=== PATIENT | male | born 1975 | race Two or more races ===

== ENCOUNTER 2018-07-16 11:42 | Inpatient (IN) | payer MEDICARE, OTHER ==
[~2018-07-16] VITALS: Ht 175.3 cm; Wt 57.3 kg
[2018-07-16 14:23] VITALS: BP 135/94
[2018-07-16 16:00] VITALS: BP 120/81
[2018-07-16] MEDS ORDERED: Sodium Polystyrene Sulfonate 15gm Powder ORAL SCH (16:15)
--- NOTE | 2018-07-16 16:30 | History and Physical Report ---
DATE OF ADMISSION: 07/16/2018 CHIEF COMPLAINT: Shortness of breath. HISTORY OF PRESENT ILLNESS: This is a 43-year-old male who is a resident of [facility]. The patient was transferred to [facility] Emergency Room with shortness of breath. Following the stabilization, the patient was transferred to this hospital for further care. In the ER at [facility], the patient was noted to be having shortness of breath and was given breathing treatments and his condition improved. His potassium was 6.8. The patient was offered Kayexalate treatment but the patient refused! The patient has dialysis scheduled today. Of note is that the patient is also complaining of Nausea!! PAST MEDICAL HISTORY: 1. End-stage renal failure on dialysis. 2. COPD. 3. Noncompliance with diet and fluids. 4. History of recurrent ascites in the past. MEDICATIONS: Please refer to the list from the custodial. ALLERGIES: No known drug allergies. FAMILY HISTORY: Unremarkable. SOCIAL HISTORY: The patient is nonsmoker and nondrinker. There is no history of illicit drug abuse. REVIEW OF SYSTEMS: HEENT: Hearing and eyesight are normal. ENDOCRINE: No history of diabetes, thyroid or adrenal problems. RESPIRATORY: Significant for shortness of breath. CARDIAC: He denies chest pain or palpitations. GASTROINTESTINAL: No history of hematochezia, melena, hematemesis, diarrhea, or constipation. GENITOURINARY: He denies dysuria, frequency, urgency, or hematuria. NEUROLOGIC: No history of stroke, syncope, or Parkinson disease. PHYSICAL EXAMINATION: GENERAL: This is a middle-aged, chronically ill-appearing, [place]ian male who is in the moderate respiratory distress . VITAL SIGNS: Blood pressure 160/90, pulse 100 sinus tachycardia, respirations 20, O2 saturation 98% on 2 liters/minute nasal cannula. HEENT: Normocephalic and atraumatic. Pupils are equal, round, and reactive to light and accommodation consensually. NECK: Supple. Trachea midline. There was no lymphadenopathy or thyromegaly. LUNGS: Bilateral wheezes. HEART: Tachycardia. S1 and S2. No rubs, murmurs, or gallops. ABDOMEN: Soft and nontender. Bowel sounds were active. He has ascites and RUQ tenderness. EXTREMITIES: No clubbing, cyanosis, or edema. He has a left upper arm AV fistula. LABORATORY AND ANCILLARY DATA: Laboratory results from [facility] were reviewed. The most significant finding is potassium of 6.8. A repeat set of stat labs is pending. Chest x-ray shows the vascular congestion. ASSESSMENT: 1. CHF, [id number]. 2. End-stage renal failure on dialysis. 3. COPD. 4. Noncompliance with diet and fluids. 5. History of recurrent ascites in the past. PLAN: 1. BiPAP. 2. Hemodialysis later tonight. 3. Continue custodial medications. 4. Stat Abd US RE Ascites + RUQ tenderness. Bennie Anne M.D. DR: Katia JOB#: [id number] CC: ABDELRAHMAN
[2018-07-16] MEDS ORDERED: Norco 5mg/325mg tab ORAL PRN ×2 (17:00→18:00)
[2018-07-16] MEDS ORDERED: Sensipar 30mg Tab ORAL SCH (18:00)
[2018-07-16] MEDS: Sensipar 30mg Tab ORAL SCH (18:15)
[2018-07-16 20:00] VITALS: BP 144/91
[2018-07-16] MEDS: Minoxidil 2.5mg tab ORAL SCH (20:37)
[2018-07-16] MEDS ORDERED: Heparin 5000 units/ml inj SUBQ SCH ×2 (21:00)
[2018-07-16] MEDS ORDERED: Minoxidil 2.5mg tab ORAL SCH (21:00)
[2018-07-16 22:33] LABS: BASOPHILS % (AUTO) 1.7 % (0.0-2.0); EOSINOPHILS % (AUTO) 1.6 % (0.0-3.0); HEMATOCRIT 29.8 % (42.0-52.0); HEMOGLOBIN 9.9 G/DL (14.2-18.0); LYMPHOCYTES % (AUTO) 12.9 % (20.0-45.0); MEAN CORPUSCULAR VOLUME 88 FL (80-99); MONOCYTES % (AUTO) 8.4 % (1.0-10.0); NEUTROPHILS % (AUTO) 75.4 % (45.0-75.0); PLATELET COUNT 212 K/UL (150-450); RED CELL DISTRIBUTION WIDTH 15.3 % (11.6-14.8); WHITE BLOOD COUNT 6.8 K/UL (4.8-10.8)
[2018-07-16 22:42] LABS: ANION GAP 16 mmol/L (5-15); BLOOD UREA NITROGEN 118 mg/dL (7-18); CALCIUM 9.4 MG/DL (8.5-10.1); CARBON DIOXIDE 25 MMOL/L (21-32); CHLORIDE 95 MMOL/L (98-107); CREATININE 9.8 MG/DL (0.55-1.30); SODIUM 136 MMOL/L (136-145)
[2018-07-16 22:44] LABS: POTASSIUM 6.8 MMOL/L (3.5-5.1)
[2018-07-17] VITALS: BP 144/83
[2018-07-17 04:00] VITALS: BP 138/86
[2018-07-17 07:33] LABS: BASOPHILS % (AUTO) 1.3 % (0.0-2.0); EOSINOPHILS % (AUTO) 4.6 % (0.0-3.0); HEMATOCRIT 30.1 % (42.0-52.0); HEMOGLOBIN 9.7 G/DL (14.2-18.0); LYMPHOCYTES % (AUTO) 17.8 % (20.0-45.0); MEAN CORPUSCULAR VOLUME 88 FL (80-99); MONOCYTES % (AUTO) 7.7 % (1.0-10.0); NEUTROPHILS % (AUTO) 68.5 % (45.0-75.0); PLATELET COUNT 203 K/UL (150-450); RED BLOOD COUNT 3.41 M/UL (4.70-6.10); RED CELL DISTRIBUTION WIDTH 15.9 % (11.6-14.8); WHITE BLOOD COUNT 5.6 K/UL (4.8-10.8)
--- NOTE | 2018-07-17 07:46 | Nephrology Progress Note ---
Assessment/Plan Plan Uremia - BUN >>100 needs repeat HD. ? HD access problems. Vasc Surgery eval. Repeat long HD run. Hyperkalemia - same. CHF - check 2D Echo. Subjective Subjective Alert , itching! Objective Objective Last 24 Hour Vital Signs Date Time Temp Pulse Resp B/P (MAP) Pulse Ox O2 Delivery O2 Flow Rate FiO2 07/17/18 04:00 98.0 85 18 138/86 (103) 95 07/17/18 04:00 86 07/17/18 00:00 92 07/17/18 00:00 97.9 97 20 144/83 (103) 91 07/16/18 21:59 94 Nasal Cannula 3.0 07/16/18 21:58 Nasal Cannula 3.0 07/16/18 21:00 Nasal Cannula 3.0 07/16/18 20:37 144/91 07/16/18 20:00 97.8 90 18 144/91 (108) 97 07/16/18 20:00 89 07/16/18 16:00 98.2 103 20 120/81 (94) 94 07/16/18 16:00 102 07/16/18 14:23 97.5 107 22 135/94 (108) 94 07/16/18 14:22 Nasal Cannula 3.0 Intake and Output 07/16/18 07/17/18 19:00 07:00 Intake Total 240 ml 480 ml Balance 240 ml 480 ml Intake Oral 240 ml 480 ml Laboratory Tests 07/16/18 21:00: White Blood Count 6.8, Red Blood Count 3.40L, Hemoglobin 9.9L, Hematocrit 29.8L , Mean Corpuscular Volume 88, Mean Corpuscular Hemoglobin 29.0, Mean Corpuscular Hemoglobin Concent 33.1, Red Cell Distribution Width 15.3H, Platelet Count 212, Mean Platelet Volume 5.8L, Neutrophils (%) (Auto) 75.4H, Lymphocytes (%) (Auto) 12.9L, Monocytes (%) (Auto) 8.4, Eosinophils (%) (Auto) 1.6, Basophils (%) (Auto) 1.7, Sodium Level 136, Potassium Level 6.8*H, Chloride Level 95L, Carbon Dioxide Level 25, Anion Gap 16H, Blood Urea Nitrogen 118H, Creatinine 9.8H, Estimat Glomerular Filtration Rate 5.8, Glucose Level 112H, Calcium Level 9.4 07/17/18 06:50: White Blood Count 5.6, Red Blood Count 3.41L, Hemoglobin 9.7L, Hematocrit 30.1L , Mean Corpuscular Volume 88, Mean Corpuscular Hemoglobin 28.6, Mean Corpuscular Hemoglobin Concent 32.3, Red Cell Distribution Width 15.9H, Platelet Count 203, Mean Platelet Volume 6.2L, Neutrophils (%) (Auto) 68.5, Lymphocytes (%) (Auto) 17.8L, Monocytes (%) (Auto) 7.7, Eosinophils (%) (Auto) 4.6H, Basophils (%) (Auto) 1.3, Sodium Level [Pending], Potassium Level [Pending ], Chloride Level [Pending], Carbon Dioxide Level [Pending], Blood Urea Nitrogen [Pending], Creatinine [Pending], Estimat Glomerular Filtration Rate [ Pending], Glucose Level [Pending], Calcium Level [Pending] Height (Feet): 5 Height (Inches): 9.00 Weight (Pounds): 128 Objective Chronically ill. Cachectic! CV RR Lungs CTA. Abd ascites? E No CCE. Bennie Anne MD Jul 17, 2018 07:46
[2018-07-17 07:48] LABS: ANION GAP 16 mmol/L (5-15); BLOOD UREA NITROGEN 68 mg/dL (7-18); CALCIUM 9.1 MG/DL (8.5-10.1); CARBON DIOXIDE 23 MMOL/L (21-32); CHLORIDE 99 MMOL/L (98-107); CREATININE 7.1 MG/DL (0.55-1.30); POTASSIUM 5.5 MMOL/L (3.5-5.1); SODIUM 138 MMOL/L (136-145)
[2018-07-17] MEDS ORDERED: Heparin Sod 1000 units/ml 10ml IV PRN (07:52)
[2018-07-17 08:00] VITALS: BP 129/87
[2018-07-17] MEDS: Heparin 5000 units/ml inj SUBQ SCH ×2 (09:00→20:51)
[2018-07-17] MEDS: Minoxidil 2.5mg tab ORAL SCH ×2 (09:32→20:50)
[2018-07-17] MEDS: Sensipar 30mg Tab ORAL SCH ×2 (09:33→18:00)
[2018-07-17 12:00] VITALS: BP 132/95
--- NOTE | 2018-07-17 13:26 | Diagnostic Imaging Report ---
Indication: Abdominal distention, abnormal renal function tests Technique: Carrera-scale and duplex images of the upper abdomen were obtained. Doppler interrogation of the hepatic vessels Comparison: none Findings: Gallbladder demonstrates gallstones. Gallbladder wall is thickened, measuring 7 mm in thickness. Sonographic Aleman's sign is positive. There is pericholecystic fluid Common bile duct measures 7 mm in diameter. No intrahepatic biliary ductal dilatation. Liver demonstrates normal echogenicity, no focal abnormality. It is somewhat enlarged Portal vein and hepatic veins are patent. Abnormal portal venous waveform, suggestive of to-and-fro waveform, is noted. Pancreas is incompletely visualized due to overlying bowel gas, visualized portions are unremarkable. Spleen is borderline enlarged, measuring 13.6 cm. Splenic hilar varices are evident Left kidney measures 9.9 cm in length. Right kidney measures 7.6 cm length. Both kidneys demonstrate increased echogenicity, especially the right.. There is no hydronephrosis. Left kidney demonstrates multiple cysts. It also demonstrates one or more calcifications . Abdominal aorta is partially obscured by bowel gas, visualized portions are non-aneurysmal . There is a small amount of ascites. There is mild distention of the inferior vena cava and hepatic veins. Impression: Hepatic vein and inferior vena cava distention, consistent with central venous hypertension Pulsatile portal venous waveform. This could represent a [id number] waveform as seen in portal vein hypertension, but can also be seen in right heart failure Cholelithiasis. Positive sonographic Aleman's sign. This combination of findings raises concern for acute cholecystitis. In addition, gallbladder wall is thickened. This could also be another site indicating acute cholecystitis, but could also represent edema due to hemodynamic derangements given other findings suggesting portal hypertension and/or central venous hypertension. Correlate with clinical findings, consider nuclear medicine hepatic biliary scan for further evaluation if clinically indicated Hepatomegaly. Trace ascites Splenomegaly and slightly better varices, also suggestive of portal venous hypertension Atrophic markedly echogenic right kidney, normal size but is also slightly echogenic left kidney consistent with medical renal disease. Left renal cysts Possible nonobstructive left renal calculi
[2018-07-17] MEDS: Piperacillin/Tazobactam 2.25 GM in D5W 55 ML IVPB SCH ×2 (15:52→22:43)
[2018-07-17 16:00] VITALS: BP 115/87
--- NOTE | 2018-07-17 17:17 | Cardiology Report ---
APPROVED REPORT EXAM: Two-dimensional and M-mode echocardiogram with Doppler and color Doppler. INDICATION Congestive Heart Failure M-Mode DIMENSIONS IVSd1.1 (0.7-1.1cm)Left Atrium (MM)4.1 (1.6-4.0cm) LVDd3.7 (3.5-5.6cm)Aortic Root4.0 (2.0-3.7cm) PWd1.7 (0.7-1.1cm)Aortic Cusp Exc.1.9 (1.5-2.0cm) LVDs2.6 (2.5-4.0cm) PWs1.6 cm Normal left ventricular chamber size. Diastolic flattening of vs related to rv volume over load All other remaining segments seem to have normal wall motion. Left ventricular ejection fraction estimated to be 55 %. Mild left ventricular hypertrophy by 2-D. No evidence of pericardial effusion. Mild left atrial enlargement. Moderate right atrial enlargement. Mild right ventricular enlargement. Focal aortic valve sclerosis with adequate cusp excursion. Thickened mitral valve leaflets with normal excursion. Mitral annulus and aortic root calcification. Pulmonic valve not well visualized. Normal tricuspid valve structure. IVC dilated at 3.3 cm without physiologic collapse suggestive of RA pressure at least 20 mmHg. A color flow and spectral Doppler study was performed and revealed: Trace aortic regurgitation. Mild mitral regurgitation. Mitral diastolic velocities suggest reduced left ventricular relaxation c/w mild LV diastolic dysfunction. Moderate to severe tricuspid regurgitation. Tricuspid systolic velocities suggests peak right ventricular systolic pressure of 72 mmHg, consistent with severe pulmonary hypertension. Pulmonic regurgitation present.
--- NOTE | 2018-07-17 18:31 | Consultation ---
History of Present Illness General Date patient seen: Jul 17, 2018 Reason for Consultation: acute cholecystitis Present Illness HPI 43 year old male residential resident with multiple medical comorbidities including ESRD on HD admitted for medical care and management. Patient experiencing SOB recently. Intermittent abdominal discomfort. US noted cholelithiasis and thickened GB wall. Surgery called to evaluate. patient seen , chart reviewed, patient examined. currently no n/v/f/c. states he is hungry. no pain currently. no leukocytosis. pending other labs. hx of cholelithiasis in past. Allergies: Coded Allergies: NO KNOWN ALLERGIES (Verified Allergy, Unknown, 07/16/18) Patient History History Provided By: Patient, Medical Record, PMD Healthcare decision maker Resuscitation status Full Code Advanced Directive on File Past Medical/Surgical History Past Medical/Surgical History: (1) Cholelithiasis (2) Acute cholecystitis (3) Shortness of breath (4) CHF (congestive heart failure), NYHA class III (5) End stage kidney disease Review of Systems All Other Systems: negative except mentioned in HPI Physical Exam General Appearance: no apparent distress, alert Lines, tubes and drains: other HEENT: normocephalic, atraumatic, mucous membranes moist Neck: normal inspection Respiratory/Chest: normal breath sounds, no respiratory distress, no accessory muscle use Cardiovascular/Chest: normal rate Abdomen: normal bowel sounds, non tender, soft, no organomegaly, no mass Extremities: normal inspection Neurologic: alert, oriented x 3 Last 24 Hour Vital Signs Date Time Temp Pulse Resp B/P (MAP) Pulse Ox O2 Delivery O2 Flow Rate FiO2 07/17/18 16:00 81 07/17/18 16:00 98.0 84 20 115/87 (96) 95 07/17/18 12:00 97.9 90 18 132/95 (107) 96 07/17/18 12:00 79 07/17/18 09:32 129/87 07/17/18 09:12 82 18 Nasal Cannula 3.0 32 07/17/18 09:12 Room Air 21 07/17/18 09:12 100 Nasal Cannula 3.0 32 07/17/18 09:00 82 129/87 07/17/18 09:00 Nasal Cannula 3.0 07/17/18 08:00 97.7 89 18 129/87 (101) 94 07/17/18 08:00 87 07/17/18 04:00 98.0 85 18 138/86 (103) 95 07/17/18 04:00 86 07/17/18 00:00 92 07/17/18 00:00 97.9 97 20 144/83 (103) 91 07/16/18 21:59 94 Nasal Cannula 3.0 07/16/18 21:58 Nasal Cannula 3.0 07/16/18 21:00 Nasal Cannula 3.0 07/16/18 20:37 144/91 07/16/18 20:00 97.8 90 18 144/91 (108) 97 07/16/18 20:00 89 Intake and Output 07/16/18 07/17/18 19:00 07:00 Intake Total 240 ml 480 ml Balance 240 ml 480 ml Intake Oral 240 ml 480 ml Laboratory Tests Test 07/16/18 21:00 07/17/18 06:50 White Blood Count 6.8 K/UL (4.8-10.8) 5.6 K/UL (4.8-10.8) Red Blood Count 3.40 M/UL (4.70-6.10) L 3.41 M/UL (4.70-6.10) L Hemoglobin 9.9 G/DL (14.2-18.0) L 9.7 G/DL (14.2-18.0) L Hematocrit 29.8 % (42.0-52.0) L 30.1 % (42.0-52.0) L Mean Corpuscular Volume 88 FL (80-99) 88 FL (80-99) Mean Corpuscular Hemoglobin 29.0 PG (27.0-31.0) 28.6 PG (27.0-31.0) Mean Corpuscular Hemoglobin Concent 33.1 G/DL (32.0-36.0) 32.3 G/DL (32.0-36.0) Red Cell Distribution Width 15.3 % (11.6-14.8) H 15.9 % (11.6-14.8) H Platelet Count 212 K/UL (150-450) 203 K/UL (150-450) Mean Platelet Volume 5.8 FL (6.5-10.1) L 6.2 FL (6.5-10.1) L Neutrophils (%) (Auto) 75.4 % (45.0-75.0) H 68.5 % (45.0-75.0) Lymphocytes (%) (Auto) 12.9 % (20.0-45.0) L 17.8 % (20.0-45.0) L Monocytes (%) (Auto) 8.4 % (1.0-10.0) 7.7 % (1.0-10.0) Eosinophils (%) (Auto) 1.6 % (0.0-3.0) 4.6 % (0.0-3.0) H Basophils (%) (Auto) 1.7 % (0.0-2.0) 1.3 % (0.0-2.0) Sodium Level 136 MMOL/L (136-145) 138 MMOL/L (136-145) Potassium Level 6.8 MMOL/L (3.5-5.1) *H 5.5 MMOL/L (3.5-5.1) H Chloride Level 95 MMOL/L (98-107) L 99 MMOL/L (98-107) Carbon Dioxide Level 25 MMOL/L (21-32) 23 MMOL/L (21-32) Anion Gap 16 mmol/L (5-15) H 16 mmol/L (5-15) H Blood Urea Nitrogen 118 mg/dL (7-18) H 68 mg/dL (7-18) H Creatinine 9.8 MG/DL (0.55-1.30) H 7.1 MG/DL (0.55-1.30) H Estimat Glomerular Filtration Rate 5.8 mL/min (>60) 8.4 mL/min (>60) Glucose Level 112 MG/DL (74-106) H 105 MG/DL (74-106) Calcium Level 9.4 MG/DL (8.5-10.1) 9.1 MG/DL (8.5-10.1) Height (Feet): 5 Height (Inches): 9.00 Weight (Pounds): 128 Medications Current Medications Medications (Trade) Dose Ordered Sig/Joe Route PRN Reason Start Time Stop Time Status Last Admin Dose Admin Acetaminophen (Tylenol) 650 mg Q6H PRN ORAL Mild Pain/Temp > 100.5 07/16/18 16:45 08/15/18 16:44 07/17/18 18:11 Acetaminophen/ Hydrocodone Bitart ([place] 5/325) 1 tab Q6H PRN ORAL PAIN 4-10 07/16/18 18:00 07/23/18 17:59 Amlodipine Besylate (Norvasc) 5 mg DAILY ORAL 07/17/18 09:00 08/16/18 08:59 Cinacalcet (Sensipar) 30 mg BID ORAL 07/16/18 18:00 08/15/18 17:59 07/17/18 09:33 Heparin Sodium (Porcine) (Heparin 5000 units/ml) 5,000 units EVERY 12 HOURS SUBQ 07/17/18 09:00 08/16/18 08:59 Heparin Sodium (Porcine) (Heparin Sod 1000 units/ml 10ml) 2,000 unit ONCE PRN IV DIALYSIS 07/17/18 07:52 07/18/18 23:59 07/17/18 17:11 Minoxidil (Loniten) 2.5 mg Q12HR ORAL 07/16/18 21:00 08/15/18 20:59 07/17/18 09:32 Ondansetron HCl (Zofran) 4 mg Q6H PRN IVP Nausea & Vomiting 07/17/18 14:45 08/16/18 14:44 07/17/18 14:54 Piperacillin Sod/ Tazobactam Sod 2.25 gm/Dextrose 55 ml @ 110 mls/hr Q8HR IVPB 07/17/18 16:00 07/22/18 15:59 07/17/18 15:52 Sevelamer Carbonate (Renvela) 800 mg THREE TIMES A DAY ORAL 07/16/18 18:00 08/15/18 17:59 07/17/18 12:52 Sodium Chloride 1,000 ml @ 500 mls/hr Q2H PRN IVLG sbp<90 during hd 07/17/18 08:00 08/16/18 07:59 Assessment/Plan Problem List: (1) Acute cholecystitis Assessment & Plan: Acute cholecystitis vs biliary colic vs incidental radiographic findings currently no symptoms of cholecystitis. no pain. no n/v/f/c. exam benign. abd soft nt/nd. no leukocytosis pending lft's -will treat conservatively -IV abx -okay for clear liquid diet -AM labs thank you. will follow clinically. ICD Codes: K81.0 - Acute cholecystitis SNOMED: 99934917 Status: stable Mandeep Barksdale Jul 17, 2018 18:31
[2018-07-17 20:00] VITALS: BP 133/94
[2018-07-18] VITALS: BP 128/88
[2018-07-18 04:00] VITALS: BP 131/84
[2018-07-18] MEDS: Piperacillin/Tazobactam 2.25 GM in D5W 55 ML IVPB SCH (05:42)
[2018-07-18 07:11] LABS: BASOPHILS % (AUTO) 2.7 % (0.0-2.0); EOSINOPHILS % (AUTO) 8.7 % (0.0-3.0); HEMATOCRIT 32.3 % (42.0-52.0); HEMOGLOBIN 10.5 G/DL (14.2-18.0); LYMPHOCYTES % (AUTO) 18.6 % (20.0-45.0); MEAN CORPUSCULAR VOLUME 88 FL (80-99); MONOCYTES % (AUTO) 10.7 % (1.0-10.0); NEUTROPHILS % (AUTO) 59.3 % (45.0-75.0); PLATELET COUNT 198 K/UL (150-450); RED BLOOD COUNT 3.65 M/UL (4.70-6.10); RED CELL DISTRIBUTION WIDTH 15.1 % (11.6-14.8); WHITE BLOOD COUNT 5.3 K/UL (4.8-10.8)
[2018-07-18 07:26] LABS: ALANINE AMINOTRANSFERASE 22 U/L (12-78); ALBUMIN 3.6 G/DL (3.4-5.0); ALBUMIN/GLOBULIN RATIO 0.7 (1.0-2.7); ALKALINE PHOSPHATASE 273 U/L (46-116); ANION GAP 14 mmol/L (5-15); ASPARTATE AMINO TRANSFERASE 20 U/L (15-37); BILIRUBIN,TOTAL 1.2 MG/DL (0.2-1.0); BLOOD UREA NITROGEN 55 mg/dL (7-18); CALCIUM 9.4 MG/DL (8.5-10.1); CARBON DIOXIDE 23 MMOL/L (21-32); CHLORIDE 98 MMOL/L (98-107); PHOSPHORUS 6.2 MG/DL (2.5-4.9); POTASSIUM 5.6 MMOL/L (3.5-5.1); SODIUM 135 MMOL/L (136-145)
[2018-07-18 07:29] LABS: BILIRUBIN,DIRECT 0.6 MG/DL (0.0-0.3)
[2018-07-18 07:55] VITALS: BP 118/83
[2018-07-18] MEDS: Sensipar 30mg Tab ORAL SCH ×2 (08:54→17:31)
[2018-07-18] MEDS: Heparin 5000 units/ml inj SUBQ SCH ×2 (08:56→20:57)
[2018-07-18] MEDS: Minoxidil 2.5mg tab ORAL SCH ×2 (08:56→20:57)
--- NOTE | 2018-07-18 10:05 | General Surgery Progress Note ---
General Surgery-Progress Note Subjective Symptoms: improved, pain absent, tolerating diet, passing flatus Additional Comments no acute events. comfortable. no n/v/f/c. no pain. tolerated clears Objective Last 24 Hour Vital Signs Date Time Temp Pulse Resp B/P (MAP) Pulse Ox O2 Delivery O2 Flow Rate FiO2 07/18/18 09:00 Nasal Cannula 3.0 07/18/18 08:56 118/83 07/18/18 08:54 79 118/83 07/18/18 08:00 79 07/18/18 07:55 98.2 79 20 118/83 (95) 95 07/18/18 07:30 74 17 Nasal Cannula 3.0 32 07/18/18 07:30 Nasal Cannula 3.0 32 07/18/18 07:30 98 Nasal Cannula 3.0 32 07/18/18 04:00 78 07/18/18 04:00 98.2 78 17 131/84 (100) 76 07/18/18 00:00 83 07/18/18 00:00 98.1 96 18 128/88 (101) 95 07/17/18 22:49 Nasal Cannula 3.0 07/17/18 22:48 98 Nasal Cannula 3.0 32 07/17/18 22:47 86 20 Nasal Cannula 3.0 32 07/17/18 21:00 Nasal Cannula 3.0 07/17/18 20:50 133/94 07/17/18 20:00 97.8 98 16 133/94 (107) 95 07/17/18 20:00 87 07/17/18 16:00 81 07/17/18 16:00 98.0 84 20 115/87 (96) 95 07/17/18 12:00 97.9 90 18 132/95 (107) 96 07/17/18 12:00 79 I&O Intake and Output 07/17/18 07/18/18 19:00 07:00 Intake Total 120 ml 415 ml Balance 120 ml 415 ml Intake Oral 120 ml 360 ml IV Total 55 ml Drains: none Cardiovascular: RSR Respiratory: clear Abdomen: soft, flat, non-tender, present bowel sounds Extremities: no cyanosis, other Laboratory Tests Test 07/18/18 05:05 White Blood Count 5.3 K/UL (4.8-10.8) Red Blood Count 3.65 M/UL (4.70-6.10) L Hemoglobin 10.5 G/DL (14.2-18.0) L Hematocrit 32.3 % (42.0-52.0) L Mean Corpuscular Volume 88 FL (80-99) Mean Corpuscular Hemoglobin 28.9 PG (27.0-31.0) Mean Corpuscular Hemoglobin Concent 32.7 G/DL (32.0-36.0) Red Cell Distribution Width 15.1 % (11.6-14.8) H Platelet Count 198 K/UL (150-450) Mean Platelet Volume 6.6 FL (6.5-10.1) Neutrophils (%) (Auto) 59.3 % (45.0-75.0) Lymphocytes (%) (Auto) 18.6 % (20.0-45.0) L Monocytes (%) (Auto) 10.7 % (1.0-10.0) H Eosinophils (%) (Auto) 8.7 % (0.0-3.0) H Basophils (%) (Auto) 2.7 % (0.0-2.0) H Sodium Level 135 MMOL/L (136-145) L Potassium Level 5.6 MMOL/L (3.5-5.1) H Chloride Level 98 MMOL/L (98-107) Carbon Dioxide Level 23 MMOL/L (21-32) Anion Gap 14 mmol/L (5-15) Blood Urea Nitrogen 55 mg/dL (7-18) H Creatinine 6.0 MG/DL (0.55-1.30) H Estimat Glomerular Filtration Rate 10.2 mL/min (>60) Glucose Level 78 MG/DL (74-106) Calcium Level 9.4 MG/DL (8.5-10.1) Phosphorus Level 6.2 MG/DL (2.5-4.9) H Total Bilirubin 1.2 MG/DL (0.2-1.0) H Direct Bilirubin 0.6 MG/DL (0.0-0.3) H Aspartate Amino Transf (AST/SGOT) 20 U/L (15-37) Alanine Aminotransferase (ALT/SGPT) 22 U/L (12-78) Alkaline Phosphatase 273 U/L (46-116) H Total Protein 8.6 G/DL (6.4-8.2) H Albumin 3.6 G/DL (3.4-5.0) Globulin 5.0 g/dL Albumin/Globulin Ratio 0.7 (1.0-2.7) L Plan Problems: (1) Acute cholecystitis Assessment & Plan: Acute cholecystitis vs biliary colic vs incidental radiographic findings currently no symptoms of cholecystitis. no pain. no n/v/f/c. exam benign. abd soft nt/nd. no leukocytosis lft's okay -will treat conservatively -IV abx -advance diet as tolerated thank you. will follow clinically. Mandeep Barksdale Jul 18, 2018 10:05
--- NOTE | 2018-07-18 10:15 | Nephrology Progress Note ---
Assessment/Plan Plan Uremia - BUN >>100 needs repeat HD. ? HD access problems. Vasc Surgery eval. Repeat long HD run. Hyperkalemia - same. CHF - check 2D Echo. Abd US interpreted as "Acute Cholecystitis". DW Dr. Martin. Clinically no evidence of acute cholecystitis. To upgrade diet. DC Abx. Frequent Hd due to uremia! Subjective Subjective Alert , itching! No N/V/Abd pain Objective Objective Last 24 Hour Vital Signs Date Time Temp Pulse Resp B/P (MAP) Pulse Ox O2 Delivery O2 Flow Rate FiO2 07/18/18 09:00 Nasal Cannula 3.0 07/18/18 08:56 118/83 07/18/18 08:54 79 118/83 07/18/18 08:00 79 07/18/18 07:55 98.2 79 20 118/83 (95) 95 07/18/18 07:30 74 17 Nasal Cannula 3.0 32 07/18/18 07:30 Nasal Cannula 3.0 32 07/18/18 07:30 98 Nasal Cannula 3.0 32 07/18/18 04:00 78 07/18/18 04:00 98.2 78 17 131/84 (100) 76 07/18/18 00:00 83 07/18/18 00:00 98.1 96 18 128/88 (101) 95 07/17/18 22:49 Nasal Cannula 3.0 07/17/18 22:48 98 Nasal Cannula 3.0 32 07/17/18 22:47 86 20 Nasal Cannula 3.0 32 07/17/18 21:00 Nasal Cannula 3.0 07/17/18 20:50 133/94 07/17/18 20:00 97.8 98 16 133/94 (107) 95 07/17/18 20:00 87 07/17/18 16:00 81 07/17/18 16:00 98.0 84 20 115/87 (96) 95 07/17/18 12:00 97.9 90 18 132/95 (107) 96 07/17/18 12:00 79 Intake and Output 07/17/18 07/18/18 19:00 07:00 Intake Total 120 ml 415 ml Balance 120 ml 415 ml Intake Oral 120 ml 360 ml IV Total 55 ml Laboratory Tests 07/18/18 05:05: White Blood Count 5.3, Red Blood Count 3.65L, Hemoglobin 10.5L, Hematocrit 32.3L , Mean Corpuscular Volume 88, Mean Corpuscular Hemoglobin 28.9, Mean Corpuscular Hemoglobin Concent 32.7, Red Cell Distribution Width 15.1H, Platelet Count 198, Mean Platelet Volume 6.6, Neutrophils (%) (Auto) 59.3, Lymphocytes (%) (Auto) 18.6L, Monocytes (%) (Auto) 10.7H, Eosinophils (%) (Auto ) 8.7H, Basophils (%) (Auto) 2.7H, Sodium Level 135L, Potassium Level 5.6H, Chloride Level 98, Carbon Dioxide Level 23, Anion Gap 14, Blood Urea Nitrogen 55H, Creatinine 6.0H, Estimat Glomerular Filtration Rate 10.2, Glucose Level 78 , Calcium Level 9.4, Phosphorus Level 6.2H, Total Bilirubin 1.2H, Direct Bilirubin 0.6H, Aspartate Amino Transf (AST/SGOT) 20, Alanine Aminotransferase ( ALT/SGPT) 22, Alkaline Phosphatase 273H, Total Protein 8.6H, Albumin 3.6, Globulin 5.0, Albumin/Globulin Ratio 0.7L Height (Feet): 5 Height (Inches): 9.00 Weight (Pounds): 126 Objective Chronically ill. Cachectic! CV RR Lungs CTA. Abd ascites? E No CCE. Bennie Anne MD Jul 18, 2018 10:15
[2018-07-18 12:00] VITALS: BP 135/91
--- NOTE | 2018-07-18 13:30 | Consultation ---
DATE OF CONSULTATION: 07/18/2018 INFECTIOUS DISEASE CONSULTATION CONSULTING PHYSICIAN: Otis Montes M.D. This consult is for coverage of Grace Lancaster M.D. PRIMARY ATTENDING PHYSICIAN: Bennie Anne M.D. REASON FOR CONSULT: Cholecystitis. HISTORY OF PRESENT ILLNESS: This is a 43-year-old [place] male admitted on July 16 from ER of the [facility]. He was admitted to the hospital because of shortness of breath. An abdominal ultrasound showed possibility of cholecystitis, but the patient has no symptoms. PAST MEDICAL HISTORY: Significant for end-stage renal disease, on hemodialysis, noncompliance with diet and fluids, anemia, COPD, and history of colitis. SOCIAL HISTORY: He lives in nursing facility. Smoker of less than 5 cigarettes a day. Denies alcohol and drug abuse. Single. ALLERGIES: No known drug allergies. MEDICATIONS: Heparin, sodium chloride, got Zosyn yesterday that was discontinued today, Zofran, amlodipine, heparin, minoxidil, Sensipar, [place], Renvela, Tylenol. REVIEW OF SYSTEMS: The patient has no fever. No chills. No shortness of breath. No coughing. No chest pain. No abdominal pain. No nausea and vomiting. Making note a little bit of urine. PHYSICAL EXAMINATION: VITAL SIGNS: Temperature 98.2, pulse 79, blood pressure 118/83. GENERAL APPEARANCE: Seems to be thin and cachectic. HEAD AND NECK: No oral lesion. HEART: S1, S2. Regular. LUNGS: Clear. The patient getting oxygen by nasal cannula. ABDOMEN: Soft, flat, and nontender. EXTREMITIES: He has no edema. He has AV graft in the left upper extremity. LABORATORY AND DIAGNOSTIC DATA: WBC 5.3, hemoglobin 10.5, hematocrit 32.3, platelets 198,000. Sodium 135, potassium 5.6, chloride 98, bicarbonate 23, BUN 55, creatinine 6, glucose 78. Abdominal ultrasound showed cholelithiasis with positive Aleman sign, hepatomegaly, trace ascites, and splenomegaly that is better, portal hypertension, atrophic kidneys mostly in the right side. Echocardiogram showed ejection fraction of 55%, pulmonary hypertension. IMPRESSION: 1. Cholelithiasis, likely without acute cholecystitis. The patient is asymptomatic. 2. Portal hypertension. 3. End-stage renal disease. 4. Anemia. 5. Noncompliance with fluids. 6. Hepatomegaly. RECOMMENDATION: Observe off antibiotic. At the end of my exam, I thank Dr. Anne for involving me in the care of this patient. Otis Montes M.D. DR: Serene JOB#: [id number] CC:
[2018-07-18 16:00] VITALS: BP 138/97
[2018-07-18 20:00] VITALS: BP 141/97
[2018-07-19] VITALS: BP 159/106
[2018-07-19 04:00] VITALS: BP 139/97
[2018-07-19 06:12] LABS: BASOPHILS % (AUTO) 1.8 % (0.0-2.0); EOSINOPHILS % (AUTO) 9.6 % (0.0-3.0); HEMOGLOBIN 10.6 G/DL (14.2-18.0); MEAN CORPUSCULAR VOLUME 87 FL (80-99); MONOCYTES % (AUTO) 9.4 % (1.0-10.0); NEUTROPHILS % (AUTO) 65.2 % (45.0-75.0); PLATELET COUNT 175 K/UL (150-450); RED BLOOD COUNT 3.66 M/UL (4.70-6.10); RED CELL DISTRIBUTION WIDTH 14.9 % (11.6-14.8); WHITE BLOOD COUNT 5.7 K/UL (4.8-10.8)
[2018-07-19 06:31] LABS: ALANINE AMINOTRANSFERASE 18 U/L (12-78); ALBUMIN 3.5 G/DL (3.4-5.0); ALBUMIN/GLOBULIN RATIO 0.7 (1.0-2.7); ALKALINE PHOSPHATASE 239 U/L (46-116); ANION GAP 15 mmol/L (5-15); ASPARTATE AMINO TRANSFERASE 19 U/L (15-37); BILIRUBIN,TOTAL 0.8 MG/DL (0.2-1.0); BLOOD UREA NITROGEN 77 mg/dL (7-18); CALCIUM 8.3 MG/DL (8.5-10.1); CARBON DIOXIDE 23 MMOL/L (21-32); CHLORIDE 99 MMOL/L (98-107); CREATININE 8.3 MG/DL (0.55-1.30); POTASSIUM 5.1 MMOL/L (3.5-5.1); SODIUM 137 MMOL/L (136-145)
[2018-07-19 08:00] VITALS: BP 154/98
--- NOTE | 2018-07-19 08:29 | Nephrology Progress Note ---
Assessment/Plan Plan Uremia - BUN >>100 needs repeat HD. ? HD access problems. Vasc Surgery eval. Repeat long HD run. Hyperkalemia - resolved. CHF - check 2D Echo. Abd US interpreted as "Acute Cholecystitis". DW Dr. Martin. Clinically no evidence of acute cholecystitis. To upgrade diet. DC Abx. Frequent Hd due to uremia! 2 D Echo Severe Pul. HTN!!! To consider Pul/Cardiol consults. May Explain recurrent Ascites. Subjective Subjective c/o heartburn. On HD now. Objective Objective Last 24 Hour Vital Signs Date Time Temp Pulse Resp B/P (MAP) Pulse Ox O2 Delivery O2 Flow Rate FiO2 07/19/18 04:00 87 07/19/18 04:00 98.0 86 19 139/97 (111) 96 07/19/18 00:00 95 07/19/18 00:00 98.5 62 18 159/106 (123) 95 07/18/18 21:00 Nasal Cannula 3.0 07/18/18 20:57 141/97 07/18/18 20:51 Nasal Cannula 3.0 32 07/18/18 20:51 99 Nasal Cannula 3.0 32 07/18/18 20:51 95 18 Nasal Cannula 3.0 32 07/18/18 20:00 97.2 81 18 141/97 (112) 95 07/18/18 20:00 79 07/18/18 16:00 81 07/18/18 16:00 97.6 84 18 138/97 (111) 97 07/18/18 12:00 82 07/18/18 12:00 98.0 82 18 135/91 (106) 95 07/18/18 09:00 Nasal Cannula 3.0 07/18/18 08:56 118/83 07/18/18 08:54 79 118/83 Intake and Output 07/18/18 07/19/18 19:00 07:00 Intake Total 1130 ml 400 ml Balance 1130 ml 400 ml Intake Oral 1130 ml 400 ml # Voids 2 2 Laboratory Tests 07/19/18 05:50: White Blood Count 5.7, Red Blood Count 3.66L, Hemoglobin 10.6L, Hematocrit 32.0L , Mean Corpuscular Volume 87, Mean Corpuscular Hemoglobin 28.8, Mean Corpuscular Hemoglobin Concent 33.0, Red Cell Distribution Width 14.9H, Platelet Count 175, Mean Platelet Volume 6.0L, Neutrophils (%) (Auto) 65.2, Lymphocytes (%) (Auto) 14.0L, Monocytes (%) (Auto) 9.4, Eosinophils (%) (Auto) 9.6H, Basophils (%) (Auto) 1.8, Sodium Level 137, Potassium Level 5.1, Chloride Level 99, Carbon Dioxide Level 23, Anion Gap 15, Blood Urea Nitrogen 77H, Creatinine 8.3H, Estimat Glomerular Filtration Rate 7.0, Glucose Level 93, Calcium Level 8.3L, Total Bilirubin 0.8, Aspartate Amino Transf (AST/SGOT) 19, Alanine Aminotransferase (ALT/SGPT) 18, Alkaline Phosphatase 239H, Total Protein 8.4H, Albumin 3.5, Globulin 4.9, Albumin/Globulin Ratio 0.7L Height (Feet): 5 Height (Inches): 9.00 Weight (Pounds): 125 Objective Chronically ill. Cachectic! CV RR Lungs CTA. Abd ascites? E No CCE. eBnnie Anne MD Jul 19, 2018 08:29
--- NOTE | 2018-07-19 10:22 | Infectious Diseases Prog Note ---
Assessment/Plan Assessment/Plan antibiotics : none A 1. unlikely cholecystitis 2. renal failure 3. cholelithiasis 4. COPD P 1. continue off antibiotics Subjective Constitutional: Denies: fever, chills Respiratory: Reports: shortness of breath - mild Gastrointestinal/Abdominal: Reports: diarrhea - last night; Denies: nausea, vomiting Musculoskeletal: Denies: pain Allergies: Coded Allergies: NO KNOWN ALLERGIES (Verified Allergy, Unknown, 07/16/18) Objective Vital Signs Last 24 Hour Vital Signs Date Time Temp Pulse Resp B/P (MAP) Pulse Ox O2 Delivery O2 Flow Rate FiO2 07/19/18 08:00 98.0 81 21 154/98 (116) 96 07/19/18 04:00 87 07/19/18 04:00 98.0 86 19 139/97 (111) 96 07/19/18 00:00 95 07/19/18 00:00 98.5 62 18 159/106 (123) 95 07/18/18 21:00 Nasal Cannula 3.0 07/18/18 20:57 141/97 07/18/18 20:51 Nasal Cannula 3.0 32 07/18/18 20:51 99 Nasal Cannula 3.0 32 07/18/18 20:51 95 18 Nasal Cannula 3.0 32 07/18/18 20:00 97.2 81 18 141/97 (112) 95 07/18/18 20:00 79 07/18/18 16:00 81 07/18/18 16:00 97.6 84 18 138/97 (111) 97 07/18/18 12:00 82 07/18/18 12:00 98.0 82 18 135/91 (106) 95 Height (Feet): 5 Height (Inches): 9.00 Weight (Pounds): 125 Respiratory/Chest: lungs clear Cardiovascular: normal rate, regular rhythm, no gallop/murmur Abdomen: soft, non tender Extremities: no edema Microbiology Date/Time Source Procedure Growth Status 07/16/18 15:25 Nose MRSA Culture - Final Staphylococcus Aureus - Mrsa Complete 07/16/18 15:25 Rectum - Final NO CARBAPENEM-RESISTANT ENTEROBACTERI... Complete 07/16/18 15:25 Rectum VRE Culture - Final NO VANCOMYCIN RESISTANT ENTEROCOCCUS ... Complete Laboratory Tests Test 07/19/18 05:50 White Blood Count 5.7 K/UL (4.8-10.8) Red Blood Count 3.66 M/UL (4.70-6.10) L Hemoglobin 10.6 G/DL (14.2-18.0) L Hematocrit 32.0 % (42.0-52.0) L Mean Corpuscular Volume 87 FL (80-99) Mean Corpuscular Hemoglobin 28.8 PG (27.0-31.0) Mean Corpuscular Hemoglobin Concent 33.0 G/DL (32.0-36.0) Red Cell Distribution Width 14.9 % (11.6-14.8) H Platelet Count 175 K/UL (150-450) Mean Platelet Volume 6.0 FL (6.5-10.1) L Neutrophils (%) (Auto) 65.2 % (45.0-75.0) Lymphocytes (%) (Auto) 14.0 % (20.0-45.0) L Monocytes (%) (Auto) 9.4 % (1.0-10.0) Eosinophils (%) (Auto) 9.6 % (0.0-3.0) H Basophils (%) (Auto) 1.8 % (0.0-2.0) Sodium Level 137 MMOL/L (136-145) Potassium Level 5.1 MMOL/L (3.5-5.1) Chloride Level 99 MMOL/L (98-107) Carbon Dioxide Level 23 MMOL/L (21-32) Anion Gap 15 mmol/L (5-15) Blood Urea Nitrogen 77 mg/dL (7-18) H Creatinine 8.3 MG/DL (0.55-1.30) H Estimat Glomerular Filtration Rate 7.0 mL/min (>60) Glucose Level 93 MG/DL (74-106) Calcium Level 8.3 MG/DL (8.5-10.1) L Total Bilirubin 0.8 MG/DL (0.2-1.0) Aspartate Amino Transf (AST/SGOT) 19 U/L (15-37) Alanine Aminotransferase (ALT/SGPT) 18 U/L (12-78) Alkaline Phosphatase 239 U/L (46-116) H Total Protein 8.4 G/DL (6.4-8.2) H Albumin 3.5 G/DL (3.4-5.0) Globulin 4.9 g/dL Albumin/Globulin Ratio 0.7 (1.0-2.7) L Current Medications Medications (Trade) Dose Ordered Sig/Joe Route PRN Reason Start Time Stop Time Status Last Admin Dose Admin Acetaminophen (Tylenol) 650 mg Q6H PRN ORAL Mild Pain/Temp > 100.5 07/16/18 16:45 08/15/18 16:44 07/17/18 18:11 Acetaminophen/ Hydrocodone Bitart (Fyffe 5/325) 1 tab Q6H PRN ORAL PAIN 4-10 07/16/18 18:00 07/23/18 17:59 Amlodipine Besylate (Norvasc) 5 mg DAILY ORAL 07/17/18 09:00 08/16/18 08:59 07/18/18 08:54 Cinacalcet (Sensipar) 30 mg BID ORAL 07/16/18 18:00 08/15/18 17:59 07/18/18 17:31 Heparin Sodium (Porcine) (Heparin 5000 units/ml) 5,000 units EVERY 12 HOURS SUBQ 07/17/18 09:00 08/16/18 08:59 Heparin Sodium (Porcine) (Heparin Sod 1000 units/ml 10ml) 500 unit ONCE IV 07/19/18 10:30 07/19/18 23:59 Minoxidil (Loniten) 2.5 mg Q12HR ORAL 07/16/18 21:00 08/15/18 20:59 07/18/18 20:57 Ondansetron HCl (Zofran) 4 mg Q6H PRN IVP Nausea & Vomiting 07/17/18 14:45 08/16/18 14:44 07/17/18 14:54 Sevelamer Carbonate (Renvela) 800 mg THREE TIMES A DAY ORAL 07/16/18 18:00 08/15/18 17:59 07/18/18 17:31 Sodium Chloride 1,000 ml @ 500 mls/hr Q2H PRN IVLG sbp<90 during hd 07/19/18 10:16 07/19/18 23:59 Grace Lancaster MD Jul 19, 2018 10:22
[2018-07-19] MEDS ORDERED: Heparin Sod 1000 units/ml 10ml IV SCH (10:30)
--- NOTE | 2018-07-19 11:26 | General Surgery Progress Note ---
General Surgery-Progress Note Subjective Symptoms: improved, pain absent, tolerating diet, passing flatus, BM Objective Last 24 Hour Vital Signs Date Time Temp Pulse Resp B/P (MAP) Pulse Ox O2 Delivery O2 Flow Rate FiO2 07/19/18 08:00 98.0 81 21 154/98 (116) 96 07/19/18 04:00 87 07/19/18 04:00 98.0 86 19 139/97 (111) 96 07/19/18 00:00 95 07/19/18 00:00 98.5 62 18 159/106 (123) 95 07/18/18 21:00 Nasal Cannula 3.0 07/18/18 20:57 141/97 07/18/18 20:51 Nasal Cannula 3.0 32 07/18/18 20:51 99 Nasal Cannula 3.0 32 07/18/18 20:51 95 18 Nasal Cannula 3.0 32 07/18/18 20:00 97.2 81 18 141/97 (112) 95 07/18/18 20:00 79 07/18/18 16:00 81 07/18/18 16:00 97.6 84 18 138/97 (111) 97 07/18/18 12:00 82 07/18/18 12:00 98.0 82 18 135/91 (106) 95 I&O Intake and Output 07/18/18 07/19/18 19:00 07:00 Intake Total 1130 ml 400 ml Balance 1130 ml 400 ml Intake Oral 1130 ml 400 ml # Voids 2 2 Drains: none Cardiovascular: RSR Respiratory: clear Abdomen: soft, flat, non-tender, present bowel sounds Extremities: other Laboratory Tests Test 07/19/18 05:50 White Blood Count 5.7 K/UL (4.8-10.8) Red Blood Count 3.66 M/UL (4.70-6.10) L Hemoglobin 10.6 G/DL (14.2-18.0) L Hematocrit 32.0 % (42.0-52.0) L Mean Corpuscular Volume 87 FL (80-99) Mean Corpuscular Hemoglobin 28.8 PG (27.0-31.0) Mean Corpuscular Hemoglobin Concent 33.0 G/DL (32.0-36.0) Red Cell Distribution Width 14.9 % (11.6-14.8) H Platelet Count 175 K/UL (150-450) Mean Platelet Volume 6.0 FL (6.5-10.1) L Neutrophils (%) (Auto) 65.2 % (45.0-75.0) Lymphocytes (%) (Auto) 14.0 % (20.0-45.0) L Monocytes (%) (Auto) 9.4 % (1.0-10.0) Eosinophils (%) (Auto) 9.6 % (0.0-3.0) H Basophils (%) (Auto) 1.8 % (0.0-2.0) Sodium Level 137 MMOL/L (136-145) Potassium Level 5.1 MMOL/L (3.5-5.1) Chloride Level 99 MMOL/L (98-107) Carbon Dioxide Level 23 MMOL/L (21-32) Anion Gap 15 mmol/L (5-15) Blood Urea Nitrogen 77 mg/dL (7-18) H Creatinine 8.3 MG/DL (0.55-1.30) H Estimat Glomerular Filtration Rate 7.0 mL/min (>60) Glucose Level 93 MG/DL (74-106) Calcium Level 8.3 MG/DL (8.5-10.1) L Total Bilirubin 0.8 MG/DL (0.2-1.0) Aspartate Amino Transf (AST/SGOT) 19 U/L (15-37) Alanine Aminotransferase (ALT/SGPT) 18 U/L (12-78) Alkaline Phosphatase 239 U/L (46-116) H Total Protein 8.4 G/DL (6.4-8.2) H Albumin 3.5 G/DL (3.4-5.0) Globulin 4.9 g/dL Albumin/Globulin Ratio 0.7 (1.0-2.7) L Plan Problems: (1) Acute cholecystitis Assessment & Plan: Acute cholecystitis vs biliary colic vs incidental radiographic findings currently no symptoms of cholecystitis. no pain. no n/v/f/c. exam benign. abd soft nt/nd. no leukocytosis lft's okay -no acute surgical intervention necessary. -will treat conservatively -IV abx -advance diet as tolerated thank you. will follow clinically. Mandeep Barksdale Jul 19, 2018 11:26
[2018-07-19 12:00] VITALS: BP 150/101
[2018-07-19] MEDS: Heparin 5000 units/ml inj SUBQ SCH ×3 (12:00→20:43)
--- NOTE | 2018-07-19 12:52 | Cardiology Progress Note ---
Assessment/Plan Assessment/Plan right heart failuer hs of pulmonary embolism hso fo intoelranc eto heparin hs ot seizure sig pulm htn on echo will need venous duplex and v/w will need cxr trop and repeat ekg for dr [id number] Objective Last 24 Hour Vital Signs Date Time Temp Pulse Resp B/P (MAP) Pulse Ox O2 Delivery O2 Flow Rate FiO2 07/19/18 09:20 Nasal Cannula 3.0 32 07/19/18 09:20 88 18 Nasal Cannula 3.0 32 07/19/18 09:20 99 Nasal Cannula 3.0 32 07/19/18 08:00 98.0 81 21 154/98 (116) 96 07/19/18 04:00 87 07/19/18 04:00 98.0 86 19 139/97 (111) 96 07/19/18 00:00 95 07/19/18 00:00 98.5 62 18 159/106 (123) 95 07/18/18 21:00 Nasal Cannula 3.0 07/18/18 20:57 141/97 07/18/18 20:51 Nasal Cannula 3.0 32 07/18/18 20:51 99 Nasal Cannula 3.0 32 07/18/18 20:51 95 18 Nasal Cannula 3.0 32 07/18/18 20:00 97.2 81 18 141/97 (112) 95 07/18/18 20:00 79 07/18/18 16:00 81 07/18/18 16:00 97.6 84 18 138/97 (111) 97 Intake and Output 07/18/18 07/19/18 19:00 07:00 Intake Total 1130 ml 400 ml Balance 1130 ml 400 ml Intake Oral 1130 ml 400 ml # Voids 2 2 Laboratory Tests Test 07/19/18 05:50 White Blood Count 5.7 K/UL (4.8-10.8) Red Blood Count 3.66 M/UL (4.70-6.10) L Hemoglobin 10.6 G/DL (14.2-18.0) L Hematocrit 32.0 % (42.0-52.0) L Mean Corpuscular Volume 87 FL (80-99) Mean Corpuscular Hemoglobin 28.8 PG (27.0-31.0) Mean Corpuscular Hemoglobin Concent 33.0 G/DL (32.0-36.0) Red Cell Distribution Width 14.9 % (11.6-14.8) H Platelet Count 175 K/UL (150-450) Mean Platelet Volume 6.0 FL (6.5-10.1) L Neutrophils (%) (Auto) 65.2 % (45.0-75.0) Lymphocytes (%) (Auto) 14.0 % (20.0-45.0) L Monocytes (%) (Auto) 9.4 % (1.0-10.0) Eosinophils (%) (Auto) 9.6 % (0.0-3.0) H Basophils (%) (Auto) 1.8 % (0.0-2.0) Sodium Level 137 MMOL/L (136-145) Potassium Level 5.1 MMOL/L (3.5-5.1) Chloride Level 99 MMOL/L (98-107) Carbon Dioxide Level 23 MMOL/L (21-32) Anion Gap 15 mmol/L (5-15) Blood Urea Nitrogen 77 mg/dL (7-18) H Creatinine 8.3 MG/DL (0.55-1.30) H Estimat Glomerular Filtration Rate 7.0 mL/min (>60) Glucose Level 93 MG/DL (74-106) Calcium Level 8.3 MG/DL (8.5-10.1) L Total Bilirubin 0.8 MG/DL (0.2-1.0) Aspartate Amino Transf (AST/SGOT) 19 U/L (15-37) Alanine Aminotransferase (ALT/SGPT) 18 U/L (12-78) Alkaline Phosphatase 239 U/L (46-116) H Total Protein 8.4 G/DL (6.4-8.2) H Albumin 3.5 G/DL (3.4-5.0) Globulin 4.9 g/dL Albumin/Globulin Ratio 0.7 (1.0-2.7) L Microbiology Date/Time Source Procedure Growth Status 07/16/18 15:25 Nose MRSA Culture - Final Staphylococcus Aureus - Mrsa Complete 07/16/18 15:25 Rectum - Final NO CARBAPENEM-RESISTANT ENTEROBACTERI... Complete 07/16/18 15:25 Rectum VRE Culture - Final NO VANCOMYCIN RESISTANT ENTEROCOCCUS ... Complete Tacos Aguirre MD Jul 19, 2018 12:52
[2018-07-19] MEDS: Sensipar 30mg Tab ORAL SCH ×2 (13:03→17:34)
[2018-07-19] MEDS: Minoxidil 2.5mg tab ORAL SCH ×2 (13:06→20:43)
--- NOTE | 2018-07-19 15:00 | Consultation ---
DATE OF CONSULTATION: 07/19/2018 CARDIOLOGY CONSULTATION CONSULTING PHYSICIAN: Tacos Aguirre M.D. REFERRING PHYSICIAN: Bennie Anne M.D. This is a consultation for Dr. Pimentel, who I am covering for. HISTORY OF PRESENT ILLNESS: This is a middle-aged gentleman, who apparently was a resident of [facility] facility was brought into the emergency room at [facility] in [place] on July 16, 2018 by the [employer] because of shortness of breath and eventually was taken to the emergency room at the [facility] and as I understand, workup was initiated and the patient was therefore subsequently transferred I believe to here to [facility]. Reason is unfortunately unknown to me at this time, but nevertheless his dialysis, he had missed some dialysis sessions. Previously, he was lost to follow up at some point with Dr. Anne and recently showed back up again. He does not really have any pain in the chest at this time, although he has some shortness of breath on exertion approximately three blocks. He does wake up at night because of shortness of breath. He does have approximately two-pillow orthopnea. He does not have any pain or pressure in the chest. No pain, pressure, tightness, heaviness in the chest especially when he takes a deep breath. There is no palpitations. PAST MEDICAL HISTORY: Positive for history of hypertension. He has a history of blood clot in his lungs, apparently that was treated with initially anticoagulation, but because of recurrent bleeding from his shunt, anticoagulation was discontinued. Not clear to me if he denies having an anticoagulation since, but that was approximately three months ago. His chart indicates he also has end-stage renal disease, on hemodialysis, congestive heart failure, recurrent ascites, anemia, chronic kidney disease, noncompliance, homelessness, seizure disorder, and recurrent pancreatitis. ALLERGIES: None. SOCIAL HISTORY: He does smoke two to three cigarettes per day. No alcohol and no drugs. 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 REVIEW OF SYSTEMS: GASTROINTESTINAL: He has recurrent episodes of nausea and vomiting initially when he came here and he was evaluated for possibility of cholecystitis. GENITOURINARY: He does not make any urine. PULMONARY: Does have occasional cough. CONSTITUTIONAL: Negative. NEUROLOGICAL: Negative. PHYSICAL EXAMINATION: GENERAL: Shows to be a middle-aged gentleman, in no respiratory distress. NECK: Supple. There is jugular venous distention to the angle of jaw. LUNGS: Decreased breath sounds on the right base, otherwise clear. CARDIAC: Regular rate and rhythm. No heaves or thrills noted. ABDOMEN: Soft, nontender. Positive bowel sounds. EXTREMITIES: There is no clubbing, cyanosis, nor is there any edema. NEUROLOGICAL: He is awake, alert, and responsive. LABORATORY AND DIAGNOSTIC DATA: His laboratory values, he has a white count of 5.7, down from 6.8 with a hemoglobin of 10.6 and platelet count of 175. Sodium is 137, potassium 5.1, chloride 99, bicarb 23, BUN 77, creatinine 8.3, and glucose of 93. His alkaline phosphate is elevated to 239, down from yesterday. His AST and ALT are all completely normal. His blood cultures so far are unremarkable and he did have an abdominal ultrasound that showed gallstones, gallbladder was thickened, positive sonographic Aleman sign. There is pericystic fluid collection. Hepatic vein and inferior vena cava distention consistent with central venous hypertension, portal hypertension, hepatomegaly, ascites, splenomegaly, atrophic echogenic right kidney, renal cyst, possible nonobstructive left calculi. An echocardiogram was performed showing basically diastolic flattening of ventricular septum. Ejection fraction 55%. Wall motion appeared to be normal. Right ventricular enlargement and right atrial enlargement, IVC dilated suggesting increased RA pressure, and pulmonary pressure of 72. An electrocardiogram performed in [facility] at [place] shows normal QRS axis. There is some nonspecific T-wave changes basically in III and aVF, but not much in V2. ASSESSMENT AND PLAN: 1. Right heart failure. 2. History of pulmonary embolism, status post questionable thrombectomy per the patient. 3. End-stage renal disease, on hemodialysis. 4. History of pancreatitis. 5. Reported history of congestive heart failure per chart. 6. History of recurrent ascites. 7. History of seizure disorder. Dr. Anne, this patient was seen in cardiac consultation. The patient has had a history of pulmonary emboli previously, does not have any sign or symptoms of pulmonary emboli at this time although he does have shortness of breath on exertion and PND suggestive of heart failure. Left ventricular systolic function appears not to be significantly decreased and his right ventricular function and appears to be enlarged. I would recommend checking a VQ scan, a chest x-ray, and venous duplex study of his lower extremities to make sure there is no deep venous thromboses. He has apparently not been able to tolerate anticoagulation before and I am not sure how new this pulmonary hypertension is. Judging by the fact that he does not have edema is probably not acute. Cardiac enzymes will be ordered as a matter of routine. A chest x-ray will also be ordered and the patient will be followed as well. Tacos Aguirre M.D. DR: ROSALIO JOB#: [id number] CC:
--- NOTE | 2018-07-19 15:15 | Diagnostic Imaging Report ---
Indications: Shortness of breath, pulmonary hypertension Technique: IV administration 5.5 mCi 99m technetium macroaggregated albumin. Images obtained over the lungs in multiple projections. Previously, patient inhaled 40 mCi aerosolized 99M technetium DTPA. Images obtained over the lungs in multiple projections Comparison: None. No prior chest radiographs are available Findings: Slightly heterogeneous perfusion activity is seen within both lungs. No large segmental or subsegmental perfusion defects are demonstrated. No evidence of mismatch with the aerosol images. Impression: Low probability of pulmonary embolus
[2018-07-19 16:00] VITALS: BP 149/101
[2018-07-19 20:00] VITALS: BP 149/106
[2018-07-20] VITALS: BP 135/91
[2018-07-20 04:00] VITALS: BP 126/82
[2018-07-20] MEDS: Sensipar 30mg Tab ORAL SCH ×2 (08:09→17:13)
[2018-07-20] MEDS: Minoxidil 2.5mg tab ORAL SCH ×2 (08:09→21:39)
[2018-07-20] MEDS: Heparin 5000 units/ml inj SUBQ SCH ×2 (08:09→21:39)
[2018-07-20 08:11] VITALS: BP 156/100
--- NOTE | 2018-07-20 09:11 | Nephrology Progress Note ---
Assessment/Plan Plan Uremia - BUN >>100 needs repeat HD. ? HD access problems. Vasc Surgery eval. Repeat long HD run. Hyperkalemia - resolved. CHF - check 2D Echo. Abd US interpreted as "Acute Cholecystitis". DW Dr. Martin. Clinically no evidence of acute cholecystitis. To upgrade diet. DC Abx. Frequent Hd due to uremia! 2 D Echo Severe Pul. HTN!!! To consider Pul/Cardiol consults. May Explain recurrent Ascites. Cardiology noted. DC to SNF. Subjective Subjective c/o heartburn. On HD now. Objective Objective Last 24 Hour Vital Signs Date Time Temp Pulse Resp B/P (MAP) Pulse Ox O2 Delivery O2 Flow Rate FiO2 07/20/18 08:11 97.7 78 18 156/100 (118) 99 07/20/18 08:09 78 156/100 07/20/18 07:12 96 Nasal Cannula 3.0 32 07/20/18 07:12 79 18 Nasal Cannula 3.0 32 07/20/18 07:12 Nasal Cannula 3.0 32 07/20/18 04:00 98.0 76 18 126/82 (97) 99 07/20/18 04:00 78 07/20/18 00:00 97.6 81 18 135/91 (106) 97 07/20/18 00:00 87 07/19/18 21:00 Nasal Cannula 3.0 07/19/18 20:43 149/106 07/19/18 20:34 Nasal Cannula 3.0 32 07/19/18 20:33 97 Nasal Cannula 3.0 32 07/19/18 20:33 86 18 Nasal Cannula 3.0 32 07/19/18 20:00 97.8 84 18 149/106 (120) 97 07/19/18 20:00 86 07/19/18 16:00 90 07/19/18 16:00 97.7 80 19 149/101 (117) 97 07/19/18 13:06 150/101 07/19/18 13:06 84 150/101 07/19/18 12:00 97.7 84 20 150/101 (117) 93 07/19/18 12:00 94 07/19/18 09:20 Nasal Cannula 3.0 32 07/19/18 09:20 88 18 Nasal Cannula 3.0 32 07/19/18 09:20 99 Nasal Cannula 3.0 32 Intake and Output 07/19/18 07/20/18 19:00 07:00 Intake Total 1500 ml 600 ml Balance 1500 ml 600 ml Intake Oral 1500 ml 600 ml # Voids 1 # Bowel Movements 2 Laboratory Tests 07/20/18 06:10: Troponin I 0.099H Height (Feet): 5 Height (Inches): 9.00 Weight (Pounds): 126 Objective Chronically ill. Cachectic! CV RR Lungs CTA. Abd ascites? E No CCE. Bennie Anne MD Jul 20, 2018 09:11
[2018-07-20] MEDS ORDERED: LONITEN2.5 MG ORAL (09:14)
[2018-07-20] MEDS ORDERED: NORCO 5-325 TA1 EACH ORAL (09:14)
[2018-07-20] MEDS ORDERED: NORVASC5 MG ORAL (09:14)
[2018-07-20] MEDS ORDERED: RENVELA800 MG ORAL (09:14)
[2018-07-20] MEDS ORDERED: ACETAMINOPHEN325 M1 ORAL (09:14)
[2018-07-20] MEDS ORDERED: ZOFRAN 4 MG4 MG/2 ML IVP (09:14)
[2018-07-20] MEDS ORDERED: SENSIPAR30 MG ORAL (09:14)
[2018-07-20 12:13] VITALS: BP 143/102
--- NOTE | 2018-07-20 14:20 | General Surgery Progress Note ---
General Surgery-Progress Note Subjective Symptoms: pain absent, tolerating diet, passing flatus, BM Objective Last 24 Hour Vital Signs Date Time Temp Pulse Resp B/P (MAP) Pulse Ox O2 Delivery O2 Flow Rate FiO2 07/20/18 12:13 97.7 82 18 143/102 (116) 99 07/20/18 11:48 83 07/20/18 10:03 Nasal Cannula 3.0 07/20/18 08:11 97.7 78 18 156/100 (118) 99 07/20/18 08:09 78 156/100 07/20/18 07:53 80 07/20/18 07:12 96 Nasal Cannula 3.0 32 07/20/18 07:12 79 18 Nasal Cannula 3.0 32 07/20/18 07:12 Nasal Cannula 3.0 32 07/20/18 04:00 98.0 76 18 126/82 (97) 99 07/20/18 04:00 78 07/20/18 00:00 97.6 81 18 135/91 (106) 97 07/20/18 00:00 87 07/19/18 21:00 Nasal Cannula 3.0 07/19/18 20:43 149/106 07/19/18 20:34 Nasal Cannula 3.0 32 07/19/18 20:33 97 Nasal Cannula 3.0 32 07/19/18 20:33 86 18 Nasal Cannula 3.0 32 07/19/18 20:00 97.8 84 18 149/106 (120) 97 07/19/18 20:00 86 07/19/18 16:00 90 07/19/18 16:00 97.7 80 19 149/101 (117) 97 I&O Intake and Output 07/19/18 07/20/18 19:00 07:00 Intake Total 1500 ml 600 ml Balance 1500 ml 600 ml Intake Oral 1500 ml 600 ml # Voids 1 # Bowel Movements 2 Dressing: other Wound: other Drains: other Cardiovascular: RSR Respiratory: decreased breath sounds Abdomen: soft, flat, non-tender, present bowel sounds Extremities: no cyanosis Laboratory Tests Test 07/20/18 06:10 07/20/18 12:50 Troponin I 0.099 ng/mL (0.000-0.056) 0.039 ng/mL (0.000-0.056) Plan Problems: (1) Acute cholecystitis Assessment & Plan: Acute cholecystitis vs biliary colic vs incidental radiographic findings currently no symptoms of cholecystitis. no pain. no n/v/f/c. exam benign. abd soft nt/nd. no leukocytosis lft's okay -no acute surgical intervention necessary. -will treat conservatively -IV abx -advance diet as tolerated thank you. will follow clinically. Mandeep Barksdale Jul 20, 2018 14:20
[2018-07-20 15:29] VITALS: BP 147/104
--- NOTE | 2018-07-20 18:11 | General Progress Note ---
Progress Note Progress Note Patient seen and examined Consult dictated # [id number] Rebel Pak MD Jul 20, 2018 18:11
--- NOTE | 2018-07-20 19:45 | Consultation ---
DATE OF CONSULTATION: 07/20/2018 VASCULAR SURGERY CONSULTATION CONSULTING PHYSICIAN: Rebel Pak M.D. REFERRING PHYSICIAN: Bennie Anne M.D. REASON FOR CONSULTATION: Left arm AV shunt evaluation and uremia, rule out recirculation or stenosis. HISTORY OF PRESENTING COMPLAINT: This is a 43-year-old male, who is well known to our vascular service and has a history of left basilic vein transposition AV fistula placed over 2 years ago, which is maturing well. The patient presented with right-sided abdominal pain and is being worked up for biliary disease by General Surgery. The patient had a potassium of 6.8 with some nausea and uremia. Vascular Surgery is consulted to evaluate the left arm AV shunt. He has no other complaints. He feels better. He is awaiting discharge back to his [facility]. PAST MEDICAL HISTORY: As above. History of COPD; noncompliance with diet and fluid; history of recurrent ascites in the past; end-stage renal failure, on dialysis; and left arm basalic vein transposition AV fistula. MEDICATIONS: See attached MAR. ALLERGIES: No known drug allergies. SOCIAL HISTORY: Nonsmoker and nondrinker. No history of drug use. FAMILY HISTORY: Unremarkable. SYSTEMS REVIEW: CARDIOVASCULAR: No history of chest pain or palpitations. PULMONARY: No cough or hemoptysis. GASTROINTESTINAL: No history of abdominal pain, constipation, or diarrhea. GENITOURINARY: No dysuria, frequency, or urgency. NEUROLOGICAL: No history of strokes. PHYSICAL EXAMINATION: VITAL SIGNS: On admission, he was afebrile at 98 degrees, heart rate is 100, blood pressure 160/90, respirations 20, and saturation is 98% on 2 liters. He has a strongly palpable left upper arm AV shunt thrill. There are mild aneurysmal changes. SKIN: Clear, dry, and intact. LUNGS: Clear to auscultation. HEART: Regular rate and rhythm. ABDOMEN: Soft and nontender. EXTREMITIES: With palpable femoral pulses. Feet are warm and intact pedal Dopplers bilaterally. LABORATORY DATA: His laboratories revealed WBC 5.7, hemoglobin 10.6, and platelet count is 175,000. Sodium is 137, potassium 5.1, chloride is 99, CO2 is 23, BUN is 77, creatinine is 8.3, and glucose 93. AST is 19 and ALT is 18. Alkaline phosphatase 239. Total protein 8.4. Albumin is 3.5. Globulin is 4.9. Troponin was at 0.09. IMPRESSION: 1. The patient had left upper arm basilic vein transposition arteriovenous fistula, rule out outflow stenosis. 2. History of uremia and hyperkalemia, resolved with frequent dialysis. 3. History of noncompliance. 4. Admitted with abdominal pain, ascites, rule out biliary disorder or liver disorder. 5. History of hypertension. PLAN AND RECOMMENDATIONS: 1. We will obtain a left arm AV shunt ultrasound duplex. 2. Medical optimization in progress. Continue dialysis through the left arm AV shunt. 3. Biliary workup per General Surgery service. We will schedule the patient for outpatient left arm fistulogram once medically optimized and cleared. The above was discussed at length with the patient and the nurse at bedside. Rebel Pak M.D. DR: CHRIS JOB#: [id number] CC: Bennie Anne M.D.; Fax#: [phone]
[2018-07-20 20:00] VITALS: BP 144/95
[2018-07-21] VITALS: BP 145/95
[2018-07-21 04:00] VITALS: BP 146/96
[2018-07-21 08:00] VITALS: BP 126/78
[2018-07-21] MEDS: Sensipar 30mg Tab ORAL SCH ×2 (08:33→18:15)
[2018-07-21] MEDS: Minoxidil 2.5mg tab ORAL SCH (08:34)
[2018-07-21] MEDS: Heparin 5000 units/ml inj SUBQ SCH ×2 (08:38→21:58)
--- NOTE | 2018-07-21 08:52 | Nephrology Progress Note ---
Assessment/Plan Plan DC hel Patient Had AV block recently @ [facility]. Was in ICU. Pacemaker entertained. Always happens in the context of Hyperkalemia. Check Labs! Notified Dr. Aguirre Subjective Subjective Per RN yesterday Trop 0.99 DC held. Today Monitor Sergoitz Type II Objective Objective Last 24 Hour Vital Signs Date Time Temp Pulse Resp B/P (MAP) Pulse Ox O2 Delivery O2 Flow Rate FiO2 07/21/18 08:34 126/78 07/21/18 08:34 79 126/78 07/21/18 08:00 97.0 79 20 126/78 (94) 94 07/21/18 04:00 97.4 74 18 146/96 (113) 98 07/21/18 04:00 77 07/21/18 00:00 97.0 80 18 145/95 (112) 99 07/21/18 00:00 83 07/20/18 21:39 144/95 07/20/18 21:00 Nasal Cannula 3.0 07/20/18 20:03 Nasal Cannula 3.0 32 07/20/18 20:02 99 Nasal Cannula 3.0 32 07/20/18 20:02 91 18 Nasal Cannula 3.0 32 07/20/18 20:00 97.0 78 18 144/95 (111) 95 07/20/18 20:00 80 07/20/18 15:30 91 07/20/18 15:29 97.7 87 18 147/104 (118) 99 07/20/18 12:13 97.7 82 18 143/102 (116) 99 07/20/18 11:48 83 07/20/18 10:03 Nasal Cannula 3.0 Intake and Output 07/20/18 07/21/18 19:00 07:00 Intake Total 520 ml 240 ml Balance 520 ml 240 ml Intake Oral 520 ml 240 ml # Voids 2 # Bowel Movements 1 Laboratory Tests 07/20/18 12:50: Troponin I 0.039 07/21/18 07:45: Hepatitis A IgM Antibody [Pending], Hepatitis B Surface Antigen [Pending], Hepatitis B Core IgM Antibody [Pending], Hepatitis C Antibody [Pending], HIV (1& 2) Antibody Rapid [Pending] Height (Feet): 5 Height (Inches): 9.00 Weight (Pounds): 127 Objective Chronically ill. Cachectic! CV RR Lungs CTA. Abd ascites? E No CCE. Bennie Anne MD Jul 21, 2018 08:52
[2018-07-21] MEDS ORDERED: Isovue-300 100ml vial INJ PRN (09:30)
[2018-07-21 09:54] LABS: ANION GAP 16 mmol/L (5-15); BLOOD UREA NITROGEN 91 mg/dL (7-18); CALCIUM 8.2 MG/DL (8.5-10.1); CARBON DIOXIDE 20 MMOL/L (21-32); CHLORIDE 100 MMOL/L (98-107); SODIUM 137 MMOL/L (136-145)
[2018-07-21] MEDS ORDERED: Sodium Polystyrene Sulfonate 15gm Powder ORAL SCH (10:30)
--- NOTE | 2018-07-21 10:59 | Cardiology Progress Note ---
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 Subjective Cardiovascular: Denies: chest pain, lightheadedness, palpitations Respiratory: Denies: shortness of breath Gastrointestinal/Abdominal: Denies: abdominal pain Genitourinary: Denies: burning Objective Last 24 Hour Vital Signs Date Time Temp Pulse Resp B/P (MAP) Pulse Ox O2 Delivery O2 Flow Rate FiO2 07/21/18 09:00 Nasal Cannula 3.0 07/21/18 08:52 100 Nasal Cannula 3.0 32 07/21/18 08:52 Nasal Cannula 3.0 32 07/21/18 08:51 84 18 Nasal Cannula 3.0 32 07/21/18 08:34 126/78 07/21/18 08:34 79 126/78 07/21/18 08:00 97.0 79 20 126/78 (94) 94 07/21/18 08:00 74 07/21/18 04:00 97.4 74 18 146/96 (113) 98 07/21/18 04:00 77 07/21/18 00:00 97.0 80 18 145/95 (112) 99 07/21/18 00:00 83 07/20/18 21:39 144/95 07/20/18 21:00 Nasal Cannula 3.0 07/20/18 20:03 Nasal Cannula 3.0 32 07/20/18 20:02 99 Nasal Cannula 3.0 32 07/20/18 20:02 91 18 Nasal Cannula 3.0 32 07/20/18 20:00 97.0 78 18 144/95 (111) 95 07/20/18 20:00 80 07/20/18 15:30 91 07/20/18 15:29 97.7 87 18 147/104 (118) 99 07/20/18 12:13 97.7 82 18 143/102 (116) 99 07/20/18 11:48 83 General Appearance: no apparent distress, alert Neck: supple Cardiovascular: normal rate Respiratory/Chest: lungs clear, normal breath sounds Abdomen: normal bowel sounds, non tender, soft Extremities: no swelling Intake and Output 07/20/18 07/21/18 19:00 07:00 Intake Total 520 ml 240 ml Balance 520 ml 240 ml Intake Oral 520 ml 240 ml # Voids 2 # Bowel Movements 1 Laboratory Tests Test 07/20/18 12:50 07/21/18 07:45 Troponin I 0.039 ng/mL (0.000-0.056) Sodium Level 137 MMOL/L (136-145) Potassium Level 6.0 MMOL/L (3.5-5.1) *H Chloride Level 100 MMOL/L (98-107) Carbon Dioxide Level 20 MMOL/L (21-32) L Anion Gap 16 mmol/L (5-15) H Blood Urea Nitrogen 91 mg/dL (7-18) H Creatinine 9.0 MG/DL (0.55-1.30) H Estimat Glomerular Filtration Rate 6.4 mL/min (>60) Glucose Level 99 MG/DL (74-106) Calcium Level 8.2 MG/DL (8.5-10.1) L Hepatitis A IgM Antibody Pending Hepatitis B Surface Antigen Pending Hepatitis B Core IgM Antibody Pending Hepatitis C Antibody Pending HIV (1&2) Antibody Rapid Negative (NEGATIVE) Tacos Aguirre MD Jul 21, 2018 10:59
[2018-07-21 12:00] VITALS: BP 140/81
--- NOTE | 2018-07-21 13:08 | Infectious Diseases Prog Note ---
Assessment/Plan Assessment/Plan A 1. Cholelithiasis, unlikely cholecystitis 2. renal failure, ESRD 3. AV block 4. COPD 5. Hyperkalemia P 1. continue off antibiotics Subjective ROS Limited/Unobtainable: No Constitutional: Reports: no symptoms Respiratory: Reports: no symptoms Cardiovascular: Reports: no symptoms Gastrointestinal/Abdominal: Reports: no symptoms Genitourinary: Reports: no symptoms Allergies: Coded Allergies: NO KNOWN ALLERGIES (Verified Allergy, Unknown, 07/16/18) Objective Vital Signs Last 24 Hour Vital Signs Date Time Temp Pulse Resp B/P (MAP) Pulse Ox O2 Delivery O2 Flow Rate FiO2 07/21/18 12:00 74 07/21/18 12:00 96.5 88 20 140/81 (100) 92 07/21/18 09:00 Nasal Cannula 3.0 07/21/18 08:52 100 Nasal Cannula 3.0 32 07/21/18 08:52 Nasal Cannula 3.0 32 07/21/18 08:51 84 18 Nasal Cannula 3.0 32 07/21/18 08:34 126/78 07/21/18 08:34 79 126/78 07/21/18 08:00 97.0 79 20 126/78 (94) 94 07/21/18 08:00 74 07/21/18 04:00 97.4 74 18 146/96 (113) 98 07/21/18 04:00 77 07/21/18 00:00 97.0 80 18 145/95 (112) 99 07/21/18 00:00 83 07/20/18 21:39 144/95 07/20/18 21:00 Nasal Cannula 3.0 07/20/18 20:03 Nasal Cannula 3.0 32 07/20/18 20:02 99 Nasal Cannula 3.0 32 07/20/18 20:02 91 18 Nasal Cannula 3.0 32 07/20/18 20:00 97.0 78 18 144/95 (111) 95 07/20/18 20:00 80 07/20/18 15:30 91 07/20/18 15:29 97.7 87 18 147/104 (118) 99 Height (Feet): 5 Height (Inches): 9.00 Weight (Pounds): 127 General Appearance: no acute distress HEENT: mucous membranes moist Respiratory/Chest: lungs clear Cardiovascular: normal rate Abdomen: soft, non tender Extremities: no edema, other - left arm AV fistula Neurologic/Psychiatric: alert, oriented x 3, responsive Laboratory Tests Test 07/21/18 07:45 Sodium Level 137 MMOL/L (136-145) Potassium Level 6.0 MMOL/L (3.5-5.1) *H Chloride Level 100 MMOL/L (98-107) Carbon Dioxide Level 20 MMOL/L (21-32) L Anion Gap 16 mmol/L (5-15) H Blood Urea Nitrogen 91 mg/dL (7-18) H Creatinine 9.0 MG/DL (0.55-1.30) H Estimat Glomerular Filtration Rate 6.4 mL/min (>60) Glucose Level 99 MG/DL (74-106) Calcium Level 8.2 MG/DL (8.5-10.1) L Hepatitis A IgM Antibody Pending Hepatitis B Surface Antigen Pending Hepatitis B Core IgM Antibody Pending Hepatitis C Antibody Pending HIV (1&2) Antibody Rapid Negative (NEGATIVE) Current Medications Medications (Trade) Dose Ordered Sig/Joe Route PRN Reason Start Time Stop Time Status Last Admin Dose Admin Acetaminophen (Tylenol) 650 mg Q6H PRN ORAL Mild Pain/Temp > 100.5 07/16/18 16:45 08/15/18 16:44 07/21/18 00:28 Acetaminophen/ Hydrocodone Bitart ([facility] 5/325) 1 tab Q6H PRN ORAL PAIN 4-10 07/16/18 18:00 07/23/18 17:59 Amlodipine Besylate (Norvasc) 5 mg DAILY ORAL 07/17/18 09:00 08/16/18 08:59 07/21/18 08:34 Barium Sulfate (Readi-Cat 2) 450 ml NOW PRN ORAL Radiology Procedure 07/21/18 09:30 07/23/18 09:19 Cinacalcet (Sensipar) 30 mg BID ORAL 07/16/18 18:00 08/15/18 17:59 07/21/18 08:33 Heparin Sodium (Porcine) (Heparin 5000 units/ml) 5,000 units EVERY 12 HOURS SUBQ 07/17/18 09:00 08/16/18 08:59 Heparin Sodium (Porcine) (Heparin Sod 1000 units/ml 10ml) 2,000 unit ONCE IV 07/22/18 09:00 07/22/18 23:59 Iopamidol (Isovue-300 100ml) 100 ml NOW PRN INJ Radiology Procedure 07/21/18 09:30 07/22/18 09:29 Minoxidil (Loniten) 2.5 mg Q12HR ORAL 07/16/18 21:00 08/15/18 20:59 07/21/18 08:34 Ondansetron HCl (Zofran) 4 mg Q6H PRN IVP Nausea & Vomiting 07/17/18 14:45 08/16/18 14:44 07/17/18 14:54 Sevelamer Carbonate (Renvela) 800 mg THREE TIMES A DAY ORAL 07/16/18 18:00 08/15/18 17:59 07/21/18 12:14 Sodium Chloride 1,000 ml @ 500 mls/hr Q2H PRN IVLG sbp<90 during hd 07/22/18 08:50 07/22/18 23:59 Otis Montes MD Jul 21, 2018 13:08
[2018-07-21 16:00] VITALS: BP 150/106
--- NOTE | 2018-07-21 17:34 | General Surgery Progress Note ---
General Surgery-Progress Note Subjective Symptoms: pain absent, tolerating diet, passing flatus Additional Comments doing well. labs noted no complaints Objective Last 24 Hour Vital Signs Date Time Temp Pulse Resp B/P (MAP) Pulse Ox O2 Delivery O2 Flow Rate FiO2 07/21/18 16:00 76 07/21/18 16:00 97.2 78 20 150/106 (121) 96 07/21/18 12:00 74 07/21/18 12:00 96.5 88 20 140/81 (100) 92 07/21/18 09:00 Nasal Cannula 3.0 07/21/18 08:52 100 Nasal Cannula 3.0 32 07/21/18 08:52 Nasal Cannula 3.0 32 07/21/18 08:51 84 18 Nasal Cannula 3.0 32 07/21/18 08:34 126/78 07/21/18 08:34 79 126/78 07/21/18 08:00 97.0 79 20 126/78 (94) 94 07/21/18 08:00 74 07/21/18 04:00 97.4 74 18 146/96 (113) 98 07/21/18 04:00 77 07/21/18 00:00 97.0 80 18 145/95 (112) 99 07/21/18 00:00 83 07/20/18 21:39 144/95 07/20/18 21:00 Nasal Cannula 3.0 07/20/18 20:03 Nasal Cannula 3.0 32 07/20/18 20:02 99 Nasal Cannula 3.0 32 07/20/18 20:02 91 18 Nasal Cannula 3.0 32 07/20/18 20:00 97.0 78 18 144/95 (111) 95 07/20/18 20:00 80 I&O Intake and Output 07/20/18 07/21/18 19:00 07:00 Intake Total 520 ml 240 ml Balance 520 ml 240 ml Intake Oral 520 ml 240 ml # Voids 2 # Bowel Movements 1 Drains: none Cardiovascular: RSR Respiratory: clear Abdomen: soft, flat, non-tender, present bowel sounds Extremities: no tenderness, no cyanosis Laboratory Tests Test 07/21/18 07:45 Sodium Level 137 MMOL/L (136-145) Potassium Level 6.0 MMOL/L (3.5-5.1) *H Chloride Level 100 MMOL/L (98-107) Carbon Dioxide Level 20 MMOL/L (21-32) L Anion Gap 16 mmol/L (5-15) H Blood Urea Nitrogen 91 mg/dL (7-18) H Creatinine 9.0 MG/DL (0.55-1.30) H Estimat Glomerular Filtration Rate 6.4 mL/min (>60) Glucose Level 99 MG/DL (74-106) Calcium Level 8.2 MG/DL (8.5-10.1) L Hepatitis A IgM Antibody Pending Hepatitis B Surface Antigen Pending Hepatitis B Core IgM Antibody Pending Hepatitis C Antibody Pending HIV (1&2) Antibody Rapid Negative (NEGATIVE) Plan Problems: (1) Acute cholecystitis Assessment & Plan: Acute cholecystitis vs biliary colic vs incidental radiographic findings currently no symptoms of cholecystitis. no pain. no n/v/f/c. exam benign. abd soft nt/nd. no leukocytosis lft's okay -no acute surgical intervention necessary. -will treat conservatively -IV abx -diet as tolerated -trend labs -renal as per nephro thank you. will follow clinically. Mandeep Barksdale Jul 21, 2018 17:34
[2018-07-21 20:00] VITALS: BP 150/103
[2018-07-22] VITALS: BP 163/102
[2018-07-22] MEDS: Minoxidil 2.5mg tab ORAL SCH ×2 (00:01→10:05)
[2018-07-22 04:00] VITALS: BP 149/103
--- NOTE | 2018-07-22 07:01 | Nephrology Progress Note ---
Assessment/Plan Plan DC hel Patient Had AV block recently @ [facility]. Was in ICU. Pacemaker entertained. Always happens in the context of Hyperkalemia. Check Labs! Notified Dr. Aguirre. To Cardiology. May need a pacemaker. Subjective Subjective Less SOB. Had HD yesterday. Objective Objective Last 24 Hour Vital Signs Date Time Temp Pulse Resp B/P (MAP) Pulse Ox O2 Delivery O2 Flow Rate FiO2 07/22/18 04:00 97.7 91 20 149/103 (118) 94 07/22/18 04:00 96 07/22/18 00:01 163/102 07/22/18 00:00 94 07/22/18 00:00 97.3 92 20 163/102 (122) 91 07/21/18 21:24 Nasal Cannula 3.0 32 07/21/18 21:24 92 20 Nasal Cannula 3.0 32 07/21/18 21:24 97 Nasal Cannula 3.0 32 07/21/18 21:00 Room Air 07/21/18 20:00 90 07/21/18 20:00 98.0 87 20 150/103 (119) 96 07/21/18 16:00 76 07/21/18 16:00 97.2 78 20 150/106 (121) 96 07/21/18 12:00 74 07/21/18 12:00 96.5 88 20 140/81 (100) 92 07/21/18 09:00 Nasal Cannula 3.0 07/21/18 08:52 100 Nasal Cannula 3.0 32 07/21/18 08:52 Nasal Cannula 3.0 32 07/21/18 08:51 84 18 Nasal Cannula 3.0 32 07/21/18 08:34 126/78 07/21/18 08:34 79 126/78 07/21/18 08:00 97.0 79 20 126/78 (94) 94 07/21/18 08:00 74 Intake and Output 07/21/18 07/22/18 19:00 07:00 Intake Total 420 ml 120 ml Balance 420 ml 120 ml Intake Oral 420 ml 120 ml Laboratory Tests 07/21/18 07:45: Sodium Level 137, Potassium Level 6.0*H, Chloride Level 100, Carbon Dioxide Level 20L, Anion Gap 16H, Blood Urea Nitrogen 91H, Creatinine 9.0H, Estimat Glomerular Filtration Rate 6.4, Glucose Level 99, Calcium Level 8.2L, Hepatitis A IgM Antibody [Pending], Hepatitis B Surface Antigen [Pending], Hepatitis B Core IgM Antibody [Pending], Hepatitis C Antibody [Pending], HIV (1&2) Antibody Rapid Negative 07/22/18 05:50: Sodium Level [Pending], Potassium Level [Pending], Chloride Level [Pending], Carbon Dioxide Level [Pending], Blood Urea Nitrogen [Pending], Creatinine [ Pending], Estimat Glomerular Filtration Rate [Pending], Glucose Level [Pending] , Calcium Level [Pending], White Blood Count [Pending], Red Blood Count [Pending ], Hemoglobin [Pending], Hematocrit [Pending], Mean Corpuscular Volume [Pending] , Mean Corpuscular Hemoglobin [Pending], Mean Corpuscular Hemoglobin Concent [ Pending], Red Cell Distribution Width [Pending], Platelet Count [Pending], Mean Platelet Volume [Pending], Neutrophils (%) (Auto) [Pending], Lymphocytes (%) ( Auto) [Pending], Monocytes (%) (Auto) [Pending], Eosinophils (%) (Auto) [Pending ], Basophils (%) (Auto) [Pending], Phosphorus Level [Pending] Height (Feet): 5 Height (Inches): 9.00 Weight (Pounds): 126 Objective Chronically ill. Cachectic! CV RR Lungs CTA. Abd ascites? E No CCE. Bennie Anne MD Jul 22, 2018 07:01
[2018-07-22 07:05] LABS: BASOPHILS % (AUTO) 1.4 % (0.0-2.0); EOSINOPHILS % (AUTO) 9.5 % (0.0-3.0); HEMATOCRIT 30.9 % (42.0-52.0); HEMOGLOBIN 10.2 G/DL (14.2-18.0); LYMPHOCYTES % (AUTO) 17.4 % (20.0-45.0); MEAN CORPUSCULAR VOLUME 86 FL (80-99); MONOCYTES % (AUTO) 8.3 % (1.0-10.0); NEUTROPHILS % (AUTO) 63.3 % (45.0-75.0); PLATELET COUNT 175 K/UL (150-450); RED CELL DISTRIBUTION WIDTH 14.2 % (11.6-14.8); WHITE BLOOD COUNT 4.5 K/UL (4.8-10.8)
[2018-07-22 07:30] LABS: ANION GAP 15 mmol/L (5-15); BLOOD UREA NITROGEN 54 mg/dL (7-18); CALCIUM 8.4 MG/DL (8.5-10.1); CARBON DIOXIDE 23 MMOL/L (21-32); CHLORIDE 101 MMOL/L (98-107); CREATININE 6.4 MG/DL (0.55-1.30); PHOSPHORUS 5.7 MG/DL (2.5-4.9); POTASSIUM 4.4 MMOL/L (3.5-5.1); SODIUM 139 MMOL/L (136-145)
[2018-07-22 08:00] VITALS: BP 145/81
[2018-07-22] MEDS: Heparin 5000 units/ml inj SUBQ SCH (09:00)
[2018-07-22] MEDS ORDERED: Heparin Sod 1000 units/ml 10ml IV SCH (09:00)
[2018-07-22 10:05] VITALS: BP 145/81
[2018-07-22] MEDS: Sensipar 30mg Tab ORAL SCH (10:06)
--- NOTE | 2018-07-22 10:48 | Infectious Diseases Prog Note ---
Assessment/Plan Assessment/Plan A 1. Cholelithiasis, unlikely cholecystitis 2. renal failure, ESRD 3. AV block 4. COPD 5. Hyperkalemia corrected P 1. continue off antibiotics Subjective ROS Limited/Unobtainable: Yes Constitutional: Reports: no symptoms Allergies: Coded Allergies: NO KNOWN ALLERGIES (Verified Allergy, Unknown, 07/16/18) Objective Vital Signs Last 24 Hour Vital Signs Date Time Temp Pulse Resp B/P (MAP) Pulse Ox O2 Delivery O2 Flow Rate FiO2 07/22/18 10:05 145/81 07/22/18 10:05 84 145/81 07/22/18 08:00 98.0 89 16 145/81 (102) 96 07/22/18 07:35 97 Nasal Cannula 3.0 32 07/22/18 07:35 Nasal Cannula 3.0 32 07/22/18 07:35 91 18 Nasal Cannula 3.0 32 07/22/18 04:00 97.7 91 20 149/103 (118) 94 07/22/18 04:00 96 07/22/18 00:01 163/102 07/22/18 00:00 94 07/22/18 00:00 97.3 92 20 163/102 (122) 91 07/21/18 21:24 Nasal Cannula 3.0 32 07/21/18 21:24 92 20 Nasal Cannula 3.0 32 07/21/18 21:24 97 Nasal Cannula 3.0 32 07/21/18 21:00 Room Air 07/21/18 20:00 90 07/21/18 20:00 98.0 87 20 150/103 (119) 96 07/21/18 16:00 76 07/21/18 16:00 97.2 78 20 150/106 (121) 96 07/21/18 12:00 74 07/21/18 12:00 96.5 88 20 140/81 (100) 92 Height (Feet): 5 Height (Inches): 9.00 Weight (Pounds): 126 General Appearance: no acute distress HEENT: mucous membranes moist Respiratory/Chest: lungs clear Cardiovascular: normal rate Abdomen: soft, non tender Extremities: no edema Neurologic/Psychiatric: other Laboratory Tests Test 07/22/18 05:50 White Blood Count 4.5 K/UL (4.8-10.8) L Red Blood Count 3.60 M/UL (4.70-6.10) L Hemoglobin 10.2 G/DL (14.2-18.0) L Hematocrit 30.9 % (42.0-52.0) L Mean Corpuscular Volume 86 FL (80-99) Mean Corpuscular Hemoglobin 28.2 PG (27.0-31.0) Mean Corpuscular Hemoglobin Concent 32.9 G/DL (32.0-36.0) Red Cell Distribution Width 14.2 % (11.6-14.8) Platelet Count 175 K/UL (150-450) Mean Platelet Volume 6.8 FL (6.5-10.1) Neutrophils (%) (Auto) 63.3 % (45.0-75.0) Lymphocytes (%) (Auto) 17.4 % (20.0-45.0) L Monocytes (%) (Auto) 8.3 % (1.0-10.0) Eosinophils (%) (Auto) 9.5 % (0.0-3.0) H Basophils (%) (Auto) 1.4 % (0.0-2.0) Sodium Level 139 MMOL/L (136-145) Potassium Level 4.4 MMOL/L (3.5-5.1) Chloride Level 101 MMOL/L (98-107) Carbon Dioxide Level 23 MMOL/L (21-32) Anion Gap 15 mmol/L (5-15) Blood Urea Nitrogen 54 mg/dL (7-18) H Creatinine 6.4 MG/DL (0.55-1.30) H Estimat Glomerular Filtration Rate 9.5 mL/min (>60) Glucose Level 90 MG/DL (74-106) Calcium Level 8.4 MG/DL (8.5-10.1) L Phosphorus Level 5.7 MG/DL (2.5-4.9) H Current Medications Medications (Trade) Dose Ordered Sig/Joe Route PRN Reason Start Time Stop Time Status Last Admin Dose Admin Acetaminophen (Tylenol) 650 mg Q6H PRN ORAL Mild Pain/Temp > 100.5 07/16/18 16:45 08/15/18 16:44 07/22/18 01:56 Acetaminophen/ Hydrocodone Bitart ([place] 5/325) 1 tab Q6H PRN ORAL PAIN 4-10 07/16/18 18:00 07/23/18 17:59 Amlodipine Besylate (Norvasc) 5 mg DAILY ORAL 07/17/18 09:00 08/16/18 08:59 07/22/18 10:05 Cinacalcet (Sensipar) 30 mg BID ORAL 07/16/18 18:00 08/15/18 17:59 07/22/18 10:06 Heparin Sodium (Porcine) (Heparin 5000 units/ml) 5,000 units EVERY 12 HOURS SUBQ 07/17/18 09:00 08/16/18 08:59 Heparin Sodium (Porcine) (Heparin Sod 1000 units/ml 10ml) 2,000 unit ONCE IV 07/22/18 09:00 07/22/18 23:59 Minoxidil (Loniten) 2.5 mg Q12HR ORAL 07/16/18 21:00 08/15/18 20:59 07/22/18 10:05 Ondansetron HCl (Zofran) 4 mg Q6H PRN IVP Nausea & Vomiting 07/17/18 14:45 08/16/18 14:44 07/17/18 14:54 Sevelamer Carbonate (Renvela) 800 mg THREE TIMES A DAY ORAL 07/16/18 18:00 08/15/18 17:59 07/22/18 10:06 Sodium Chloride 1,000 ml @ 500 mls/hr Q2H PRN IVLG sbp<90 during hd 07/22/18 08:50 07/22/18 23:59 Otis Montes MD Jul 22, 2018 10:48
--- NOTE | 2018-07-22 11:25 | Diagnostic Imaging Report ---
Indication: Cough Technique: One view of the chest Comparison: none Findings: Patient is rotated to the right. Hazy opacity over the right lung probably reflects pleural fluid, but could also be in part due to soft tissue artifact from the rotation is enlarged. There is some atelectasis at both lung bases. Impression: Hazy right lung opacity, SPECT due to pleural fluid Cardiomegaly Bilateral basilar atelectasis
--- NOTE | 2018-07-22 11:51 | General Surgery Progress Note ---
General Surgery-Progress Note Subjective Additional Comments no acute events. very comfortable. no n/v/f/c. labs improved Objective Last 24 Hour Vital Signs Date Time Temp Pulse Resp B/P (MAP) Pulse Ox O2 Delivery O2 Flow Rate FiO2 07/22/18 10:05 145/81 07/22/18 10:05 84 145/81 07/22/18 08:00 83 07/22/18 08:00 98.0 89 16 145/81 (102) 96 07/22/18 07:35 97 Nasal Cannula 3.0 32 07/22/18 07:35 Nasal Cannula 3.0 32 07/22/18 07:35 91 18 Nasal Cannula 3.0 32 07/22/18 04:00 97.7 91 20 149/103 (118) 94 07/22/18 04:00 96 07/22/18 00:01 163/102 07/22/18 00:00 94 07/22/18 00:00 97.3 92 20 163/102 (122) 91 07/21/18 21:24 Nasal Cannula 3.0 32 07/21/18 21:24 92 20 Nasal Cannula 3.0 32 07/21/18 21:24 97 Nasal Cannula 3.0 32 07/21/18 21:00 Room Air 07/21/18 20:00 90 07/21/18 20:00 98.0 87 20 150/103 (119) 96 07/21/18 16:00 76 07/21/18 16:00 97.2 78 20 150/106 (121) 96 07/21/18 12:00 74 07/21/18 12:00 96.5 88 20 140/81 (100) 92 I&O Intake and Output 07/21/18 07/22/18 19:00 07:00 Intake Total 420 ml 120 ml Balance 420 ml 120 ml Intake Oral 420 ml 120 ml Dressing: other Wound: other Drains: other Cardiovascular: RSR Respiratory: clear Abdomen: soft, non-tender, present bowel sounds Extremities: other Laboratory Tests Test 07/22/18 05:50 White Blood Count 4.5 K/UL (4.8-10.8) L Red Blood Count 3.60 M/UL (4.70-6.10) L Hemoglobin 10.2 G/DL (14.2-18.0) L Hematocrit 30.9 % (42.0-52.0) L Mean Corpuscular Volume 86 FL (80-99) Mean Corpuscular Hemoglobin 28.2 PG (27.0-31.0) Mean Corpuscular Hemoglobin Concent 32.9 G/DL (32.0-36.0) Red Cell Distribution Width 14.2 % (11.6-14.8) Platelet Count 175 K/UL (150-450) Mean Platelet Volume 6.8 FL (6.5-10.1) Neutrophils (%) (Auto) 63.3 % (45.0-75.0) Lymphocytes (%) (Auto) 17.4 % (20.0-45.0) L Monocytes (%) (Auto) 8.3 % (1.0-10.0) Eosinophils (%) (Auto) 9.5 % (0.0-3.0) H Basophils (%) (Auto) 1.4 % (0.0-2.0) Sodium Level 139 MMOL/L (136-145) Potassium Level 4.4 MMOL/L (3.5-5.1) Chloride Level 101 MMOL/L (98-107) Carbon Dioxide Level 23 MMOL/L (21-32) Anion Gap 15 mmol/L (5-15) Blood Urea Nitrogen 54 mg/dL (7-18) H Creatinine 6.4 MG/DL (0.55-1.30) H Estimat Glomerular Filtration Rate 9.5 mL/min (>60) Glucose Level 90 MG/DL (74-106) Calcium Level 8.4 MG/DL (8.5-10.1) L Phosphorus Level 5.7 MG/DL (2.5-4.9) H Plan Problems: (1) Acute cholecystitis Assessment & Plan: Acute cholecystitis vs biliary colic vs incidental radiographic findings currently no symptoms of cholecystitis. no pain. no n/v/f/c. exam benign. abd soft nt/nd. no leukocytosis lft's okay -no acute surgical intervention necessary. -will treat conservatively -IV abx -diet as tolerated -trend labs -renal as per nephro thank you. will follow clinically. Mandeep Barksdale Jul 22, 2018 11:51
--- NOTE | 2018-07-22 13:35 | Diagnostic Imaging Report ---
APPROVED REPORT CPT Code: 35213 Present Symptoms Comments: Pulmonary hypertension BILATERAL: Imaging reveals a patent deep venous system bilaterally. There is no evidence of thrombus within the femoral, popliteal or tibial segments. The greater saphenous veins are also within normal limits. Doppler indicates normal spontaneous flow within these segments.
--- NOTE | 2018-07-23 10:42 | Discharge Summary ---
Discharge Summary Discharge Summary _ DATE OF ADMISSION: 07/16/2018 DATE OF DISCHARGE: 07/22/2018. Patient signed AGAINST MEDICAL ADVICE REASON FOR ADMISSION: 43 years old male, resident of [facility] facility, with past medical history of end-stage renal disease, on hemodialysis, COPD, noncompliance, recurrent ascites in the past, was initially presented to [facility] [place] emergency department with shortness of breath. In emergency department patient received nebulizing treatment with bronchodilator and respiratory status improved. Potassium was 6.8. Patient was offered Kayexalate treatment, which he refused. Patient also complained of nausea. Following stabilization, patient was transferred to [facility] for further management with diagnosis of congestive heart failure [id number], end-stage renal disease, on hemodialysis, COPD, noncompliance with diet and fluids, history of recurrent ascites in the past. CONSULTANTS: rail setter Dr. Carla BENSON specialist Dr. Jono Montes vascular surgery Dr. Galeas General surgery Dr. Barksdale [facility] COURSE: Patient admitted to telemetry floor. Patient initially started on the BiPAP. Hemodialysis provided as per railroad signal technician recommendations with close monitoring of volume status and cardiorenal parameters. Laboratory work on admission showed hyperkalemia with potassium 6.8. BUN 118, creatinine 9.8 , consistent with uremia and end-stage renal disease. No leukocytosis ,hemoglobin 9.9 ,hematocrit 29.8. Echocardiogram revealed ejection fraction of 55%. Diastolic flattening of ventricle septum related to right ventricle volume overload. All other remaining segments seem to have normal wall motion. No evidence of pericardial effusion. Mild left ventricular hypertrophy. Moderate right atrial enlargement and mild right ventricular enlargement. Moderate to severe tricuspid regurgitation. Right ventricular systolic pressure of 72, consistent with severe pulmonary hypertension Urologist Physician closely followed . Per rail setter patient had right heart failure and history of pulmonary embolism Venous duplex bilateral lower extremity was negative. VQ scan revealed low probability of pulmonary embolus. Supplemental oxygen provided as needed to keep pulse oximetry above 92%. Pulmonary toilet provided as needed. Telemetry showed Mobitz type 1 second degree AV block with occasional junctional rhythm. Patient had episodes of of bradycardia in setting of elevated potassium, which occurred in the past as well. Patient may need long-term pacing as discussed between rail setter and attending physician. Initially minimally elevated troponin 0.099, second troponin within normal limits . Single episode of elevated troponin was likely due to troponin leak , secondary to renal failure; no cardiac complaints , no ischemic changes on EKG. Total bilirubin -1.2, direct bilirubin-0. 6. Abdominal ultrasound revealed central venous hypertension. Possibly portal vein hypertension versus right heart failure. Cholelithiasis with positive sonographic Aleman's sign with concern for acute cholecystitis. Gallbladder wall thickening. Hepatomegaly.. Splenomegaly and slightly better varices suggestive of portal venous hypertension. Markedly atrophic echogenic right kidney and slightly echogenic left kidney consistent with medical renal disease. General surgeon closely followed. Abdominal exam was benign . No leukocytosis, stable LFT, no fever ,no nausea, no vomiting, no pain. Repeated bilirubin down to normal. Patient unlikely had acute cholecystitis, since no clinical presentation or laboratory findings were consistent with acute cholecystitis. Surgeon concluded that no acute surgical intervention was necessary. ID specialist recommended to keep patient off antibiotics, . Vascular surgeon seen and evaluated patient and recommended medical optimization , continue dialysis through the left arm AV shunt. He recommended to obtain left arm AV shunt ultrasound duplex. Patient will need outpatient left arm fistulogram once medically optimized and cleared. Hyperkalemia treated, prior to signing AMA potassium 4.4. Renal parameters BUN 54, creatinine 6.4 prior to signing AMA. Patient was counseled on compliance with hemodialysis, medication regimen , fluids and diet. Patient stated that he had family emergency. Patient declined to talk with physician prior to leaving or wait for his call back. The risks and consequences of signing AGAINST MEDICAL ADVICE were discussed with patient in detail. Patient verbalized understanding, nevertheless signed AMA form and left. FINAL DIAGNOSES: End-stage renal disease with uremia due to noncompliance Hyperkalemia Right heart failure Mobitz type 1 second degree AV block with occasional junctional rhythm History of pulmonary embolism Severe pulmonary hypertension Cholelithiasis, unlikely cholecystitis COPD History of recurrent ascites DISCHARGE MEDICATIONS: See Medication Reconciliation list. DISCHARGE INSTRUCTIONS: Patient was discharged to the [facility] facility. Follow up with medical doctor at the facility. I have been assigned to dictate discharge summary for this account. I was not involved in the patient's management. Lili Vicente NP Jul 23, 2018 10:42
== END 2018-07-22 11:55 | disposition left against medical advice (07) | DRG 291 ==
LOC: 2E 13:43
PROC: 5A1D70Z Performance of Urinary Filtration, Intermittent, Less than 6 Hours Per Day (ICD-10-PCS; principal; 2018-07-16)
DX: I13.2 Hypertensive heart and chronic kidney disease with heart failure and with stage 5 chronic kidney disease, or end stage renal disease (principal); N18.6 End stage renal disease; I50.810 Right heart failure, unspecified; I27.20 Pulmonary hypertension, unspecified; I36.1 Nonrheumatic tricuspid (valve) insufficiency; Z99.2 Dependence on renal dialysis; Z91.11 Patient's noncompliance with dietary regimen; E87.5 Hyperkalemia; Z86.711 Personal history of pulmonary embolism; K80.20 Calculus of gallbladder without cholecystitis without obstruction; J44.9 Chronic obstructive pulmonary disease, unspecified; D64.9 Anemia, unspecified; Z91.19 Patient's noncompliance with other medical treatment and regimen; Z59.0 Homelessness; I44.1 Atrioventricular block, second degree; R00.1 Bradycardia, unspecified
CPT/HCPCS: 36415; 71045; 76700; 78579; 78580; 80048; 80053; 82248; 84100; 84484; 85025; 86703; 86705; 86709; 86803; 87081; 87340; 93005; 93306; 93970; 93990; 94664; 94760; A9503; J2405

== ENCOUNTER 2018-08-01 16:37 | Inpatient (IN) | payer MEDICARE, OTHER ==
[~2018-08-01] VITALS: Ht 175.3 cm; Wt 59.0 kg
[~2018-08-01 16:37] MED LIST: ACETAMINOPHEN325 M1 ORAL; LONITEN2.5 MG ORAL; NORCO 5-325 TA1 EACH ORAL; NORVASC5 MG ORAL; RENVELA800 MG ORAL; SENSIPAR30 MG ORAL; ZOFRAN 4 MG4 MG/2 ML IVP
--- NOTE | 2018-08-01 17:25 | Emergency Room Report ---
History of Present Illness General Chief Complaint: General Complaint Source: Patient, Medical Record, EMS Present Illness HPI This patient presents from an assisted living facility. He was sent over by his primary care physician Dr. Rutledge. The patient had traveled to [place] for a viewing and missed dialysis yesterday. The patient states he does feel a little short of breath. He has no other complaints. Allergies: Coded Allergies: NO KNOWN ALLERGIES (Verified Allergy, Unknown, 07/16/18) Patient History Past Medical History: none, see triage record, CAD, CHF, COPD, renal disease, dialysis Social History: Denies: smoking, alcohol use, drug use Reviewed Nursing Documentation: PMH: Agreed; PSxH: Agreed Nursing Documentation-PMH Past Medical History: No History, Except For Hx Cardiac Problems: Yes Hx Hypertension: Yes Hx Pacemaker: No Hx Asthma: No Hx COPD: Yes Hx Diabetes: No Hx Cancer: No Hx Gastrointestinal Problems: No Hx Dialysis: Yes - Left AV shunt History Of Psychiatric Problem: No Hx Neurological Problems: No Hx Cerebrovascular Accident: No Hx Seizures: No Review of Systems All Other Systems: negative except mentioned in HPI Physical Exam Vital Signs Date Time Temp Pulse Resp B/P (MAP) Pulse Ox O2 Delivery O2 Flow Rate FiO2 08/01/18 16:38 98.1 82 18 152/103 95 Nasal Cannula 2.0 Sp02 EP Interpretation: reviewed, normal General Appearance: no apparent distress, alert, GCS 15, non-toxic Head: normocephalic, atraumatic Eyes: bilateral eye normal inspection, bilateral eye PERRL ENT: hearing grossly normal, normal pharynx, no angioedema, normal voice Neck: full range of motion, supple/symm/no masses Respiratory: chest non-tender, no respiratory distress, no retraction, no accessory muscle use, rales, speaking full sentences Cardiovascular #1: regular rate, rhythm, no edema Gastrointestinal: normal bowel sounds, non tender, soft, non-distended, no guarding, no rebound Rectal: deferred Genitourinary: normal inspection, no CVA tenderness Musculoskeletal: back normal, gait/station normal, normal range of motion, non- tender, calf tenderness Neurologic: alert, oriented x3, responsive, motor strength/tone normal, sensory intact, speech normal Psychiatric: judgement/insight normal, memory normal, mood/affect normal, no suicidal/homicidal ideation Skin: normal color, no rash, warm/dry, well hydrated Medical Decision Making Diagnostic Impression: Primary Impression: Fluid overload Additional Impressions: Missed dialysis Pneumonia ER Course This patient is dialysis and has fluid overload. He short of breath and is requiring some nasal cannula oxygen to keep him above this SpO2 of 90. Chest x- ray shows an area of opacification that may be pneumonia versus fluid. I treated this patient with Rocephin IV as a precaution. She will be admitted to receive dialysis and for further monitoring and treatment. Laboratory Tests Test 08/01/18 17:33 White Blood Count 6.7 K/UL (4.8-10.8) Red Blood Count 4.30 M/UL (4.70-6.10) L Hemoglobin 11.7 G/DL (14.2-18.0) L Hematocrit 36.5 % (42.0-52.0) L Mean Corpuscular Volume 85 FL (80-99) Mean Corpuscular Hemoglobin 27.1 PG (27.0-31.0) Mean Corpuscular Hemoglobin Concent 32.0 G/DL (32.0-36.0) Red Cell Distribution Width 14.4 % (11.6-14.8) Platelet Count 240 K/UL (150-450) Mean Platelet Volume 7.1 FL (6.5-10.1) Neutrophils (%) (Auto) 65.3 % (45.0-75.0) Lymphocytes (%) (Auto) 18.6 % (20.0-45.0) L Monocytes (%) (Auto) 8.5 % (1.0-10.0) Eosinophils (%) (Auto) 5.9 % (0.0-3.0) H Basophils (%) (Auto) 1.6 % (0.0-2.0) Sodium Level 138 MMOL/L (136-145) Potassium Level 4.9 MMOL/L (3.5-5.1) Chloride Level 97 MMOL/L (98-107) L Carbon Dioxide Level 24 MMOL/L (21-32) Anion Gap 17 mmol/L (5-15) H Blood Urea Nitrogen 93 mg/dL (7-18) H Creatinine 10.9 MG/DL (0.55-1.30) H Estimate Glomerular Filtration Rate 5.1 mL/min (>60) Glucose Level 84 MG/DL (74-106) Calcium Level 8.6 MG/DL (8.5-10.1) Total Bilirubin 1.2 MG/DL (0.2-1.0) H Direct Bilirubin 0.6 MG/DL (0.0-0.3) H Aspartate Amino Transferase (AST) 35 U/L (15-37) Alanine Aminotransferase (ALT) 27 U/L (12-78) Alkaline Phosphatase 361 U/L (46-116) H Total Protein 9.7 G/DL (6.4-8.2) H Albumin 4.2 G/DL (3.4-5.0) Globulin 5.5 g/dL Albumin/Globulin Ratio 0.8 (1.0-2.7) L EKG Diagnostic Results Rate: normal Rhythm: NSR ST Segments: other - NSST findings Rhythm Strip Diag. Results EP Interpretation: yes Rate: 70's Rhythm: NSR, no PVC's, no ectopy Chest X-Ray Diagnostic Results Chest X-Ray Diagnostic Results : Chest X-Ray Ordered: Yes # of Views/Limited/Complete: 1 View Indication: Shortness of Breath EP Interpretation: Yes Interpretation: other - RLL opacity. Impression: No acute disease Electronically Signed by: Deidre Lewis DO Last Vital Signs Date Time Temp Pulse Resp B/P (MAP) Pulse Ox O2 Delivery O2 Flow Rate FiO2 08/01/18 17:02 82 18 Nasal Cannula 2.0 08/01/18 16:38 98.1 152/103 95 Disposition: ADMITTED INPATIENT Condition: Serious Deidre Lewis DO Aug 01, 2018 17:25
[2018-08-01 17:51] LABS: BASOPHILS % (AUTO) 1.6 % (0.0-2.0); EOSINOPHILS % (AUTO) 5.9 % (0.0-3.0); HEMATOCRIT 36.5 % (42.0-52.0); HEMOGLOBIN 11.7 G/DL (14.2-18.0); LYMPHOCYTES % (AUTO) 18.6 % (20.0-45.0); MEAN CORPUSCULAR VOLUME 85 FL (80-99); MONOCYTES % (AUTO) 8.5 % (1.0-10.0); NEUTROPHILS % (AUTO) 65.3 % (45.0-75.0); PLATELET COUNT 240 K/UL (150-450); RED CELL DISTRIBUTION WIDTH 14.4 % (11.6-14.8); WHITE BLOOD COUNT 6.7 K/UL (4.8-10.8)
[2018-08-01] MEDS ORDERED: cefTRIAXone 1 GM in NS 55 ML IVPB ONE (18:00)
[2018-08-01 18:09] LABS: ANION GAP 17 mmol/L (5-15); BLOOD UREA NITROGEN 93 mg/dL (7-18); CALCIUM 8.6 MG/DL (8.5-10.1); CARBON DIOXIDE 24 MMOL/L (21-32); CHLORIDE 97 MMOL/L (98-107); CREATININE 10.9 MG/DL (0.55-1.30); POTASSIUM 4.9 MMOL/L (3.5-5.1); SODIUM 138 MMOL/L (136-145)
[2018-08-01] MEDS ORDERED: AMLODIPINE BESY10 MG ORAL (18:11)
[2018-08-01 18:19] LABS: ALANINE AMINOTRANSFERASE 27 U/L (12-78); ALBUMIN 4.2 G/DL (3.4-5.0); ALBUMIN/GLOBULIN RATIO 0.8 (1.0-2.7); ALKALINE PHOSPHATASE 361 U/L (46-116); ASPARTATE AMINO TRANSFERASE 35 U/L (15-37); BILIRUBIN,TOTAL 1.2 MG/DL (0.2-1.0)
[2018-08-01 18:21] LABS: BILIRUBIN,DIRECT 0.6 MG/DL (0.0-0.3)
[2018-08-01 19:20] VITALS: BP 171/122
[2018-08-01] MEDS ORDERED: Atenolol 25mg tab ORAL ONE (19:30)
[2018-08-01 19:45] VITALS: BP 155/108
[2018-08-01 20:11] VITALS: BP 151/98
[2018-08-01] MEDS ORDERED: Heparin 5000 units/ml inj SUBQ SCH (22:45)
[2018-08-02] VITALS: BP 116/74
[2018-08-02 04:00] VITALS: BP 113/94
[2018-08-02 08:00] VITALS: BP 150/99
--- NOTE | 2018-08-02 08:46 | Diagnostic Imaging Report ---
Indication: Shortness of breath Technique: One view of the chest Comparison: 07/22/2018 Findings: Unchanged right-sided pleural effusion versus thickening. There is some scarring or atelectasis at the right lung base. The heart is enlarged. The left lung and pleural space are clear. Surgical clips are seen in the left arm and axilla. Findings are overall unchanged Impression: Right-sided pleural effusion versus thickening, unchanged since 07/22/2018 Right basilar atelectasis versus scarring Cardiomegaly
[2018-08-02] MEDS ORDERED: Heparin 5000 units/ml inj SUBQ SCH (09:00)
[2018-08-02] MEDS ORDERED: Sensipar 30mg Tab ORAL SCH (09:00)
[2018-08-02 12:00] VITALS: BP 131/75
--- NOTE | 2018-08-02 12:00 | History and Physical Report ---
DATE OF ADMISSION: 08/01/2018 CHIEF COMPLAINT: Shortness of breath. HISTORY OF PRESENT ILLNESS: This is a 43-year-old [place] male, who is on dialysis. The patient is extremely noncompliant. [facility] days missing [facility]. The patient traveled to [place] during the holiday. He [facility] and was asked to check into the emergency department. The patient has history of recurrent hyperkalemia, accompanied with the heart block. PAST MEDICAL HISTORY: 1. End-stage renal failure on dialysis. 2. History of intermittent sick sinus syndrome in the setting of hyperkalemia. 3. Recurrent ascites. 4. Extreme noncompliance. 5. Hypertensive cardiovascular disease. 6. Secondary hyperparathyroidism. MEDICATIONS: Tylenol p.r.n., amlodipine, Sensipar, Woodridge p.r.n., minoxidil, Zofran, and Renvela. ALLERGIES: No known drug allergies. FAMILY HISTORY: Unremarkable. SOCIAL HISTORY: The patient is essentially homeless. HABITS: He is nonsmoker and nondrinker. There is no history of illicit drug abuse. REVIEW OF SYSTEMS: HEENT: Hearing and eyesight are normal. ENDOCRINE: Significant for severe secondary hyperparathyroidism. RESPIRATORY: Significant for orthopnea, paroxysmal nocturnal dyspnea, and dyspnea on effort. NEUROLOGIC: No history of stroke, syncope, Parkinson disease. PHYSICAL EXAMINATION: GENERAL: This is a middle-aged [place] male, who is in no acute distress. VITAL SIGNS: Blood pressure 150/99, pulse 65, respirations 20, and temperature 97.3. HEENT: The head is normocephalic and atraumatic. Pupils are equal, round, and reactive to light and accommodation consensually. NECK: Supple. Trachea midline. There was no lymphadenopathy or thyromegaly. LUNGS: Clear to auscultation and percussion. HEART: Regular rate and rhythm without rubs, murmurs, or gallops. ABDOMEN: Soft and nontender. Bowel sounds were active. He has a scar from previous abdominal surgery. EXTREMITIES: No clubbing, cyanosis, or edema. He has a left upper arm AV fistula with thrill and bruit. LABORATORY AND ANCILLARY DATA: BUN 93, creatinine 10.9, potassium 4.9. Hemoglobin 11.7. Chest x-ray, a right-sided pleural effusion versus thickening. ASSESSMENT: 1. Noncompliance with dialysis. 2. End-stage renal failure on dialysis. 3. History of intermittent sick sinus syndrome in the setting of hyperkalemia. 4. Recurrent ascites. 5. Extreme noncompliance. 6. Hypertensive cardiovascular disease. 7. Secondary hyperparathyroidism. PLAN: 1. Hemodialysis today. 2. Consider discharge after completing dialysis and the patient needs to commit to affording leaving against medical advice. Bennie Anne M.D. DR: CHINTAN JOB#: [id number] CC:
[2018-08-02] MEDS ORDERED: Heparin Sod 1000 units/ml 10ml IV PRN (21:45)
--- NOTE | 2018-08-04 10:04 | Discharge Summary ---
Discharge Summary Discharge Summary _ DATE OF ADMISSION: 08/01/2018 DATE OF DISCHARGE: 08/02/2018 REASON FOR ADMISSION: 43 years old male with past medical history of end-stage renal disease, on hemodialysis, history of intermittent sick sinus syndrome in the setting of hyperkalemia, hypertensive cardiovascular disease, secondary hyperparathyroidism , extreme noncompliance, recurrent ascites, [facility] from the [facility] facility for several days of missing hemodialysis. Apparently patient traveled to [place] during holidays, and missed his scheduled hemodialysis days. He came back to the care home and asked to be checked in the emergency department. Upon evaluation BUN 93 creatinine 10.9. Potassium 4.9. Hemoglobin 11.7. Chest x-ray demonstrated right-sided pleural effusion . Right basilar atelectasis versus scarring. Cardiomegaly. EKG showed sinus rhythm with nonspecific ST changes. Patient admitted with diagnoses of noncompliance with hemodialysis, fluid overload due to missing hemodialysis, end-stage renal disease on hemodialysis, history of intermittent sick sinus syndrome in the setting of hyperkalemia, hypertensive cardiovascular disease, secondary hyperparathyroidism, recurrent ascites. HOSPITAL COURSE: Patient admitted to telemetry floor. Dialysis was arranged with close monitoring of volumes and cardiorenal parameters. Telemetry revealed sinus rhythm, no evidence of ischemic changes , ectopy or bradycardia. Potassium stable. Home medications resumed. Patient was stable for discharge to prison facility for continuation of care. Patient was counseled on compliance with hemodialysis to avoid future hospitalizations and overall worsening of medical condition. Due to rapid and unexpected improvement in patient's condition, patient was discharged in 1 day. FINAL DIAGNOSES: Noncompliance with hemodialysis Fluid overload due to missing hemodialysis End-stage renal disease on hemodialysis History of intermittent sick sinus syndrome in the setting of hyperkalemia Hypertensive cardiovascular disease Secondary hyperparathyroidism Recurrent ascites. DISCHARGE MEDICATIONS: See Medication Reconciliation list. DISCHARGE INSTRUCTIONS: Patient was discharged to the prison facility. Follow up with medical doctor at the facility. Stress importance of compliance with hemodialysis on a regular schedule. I have been assigned to dictate discharge summary for this account. I was not involved in the patient's management. Lili Vicente NP Aug 04, 2018 10:04
== END 2018-08-02 13:46 | DRG 640 ==
LOC: EDBD 16:37 → EMR 17:31 → 2E 17:38 → EDBEDREQ 18:50 → 2E 19:58
DX: E87.79 Other fluid overload (principal); N18.6 End stage renal disease; I13.11 Hypertensive heart and chronic kidney disease without heart failure, with stage 5 chronic kidney disease, or end stage renal disease; N25.81 Secondary hyperparathyroidism of renal origin; R18.8 Other ascites; Z99.2 Dependence on renal dialysis; Z91.15 Patient's noncompliance with renal dialysis; I49.5 Sick sinus syndrome
CPT/HCPCS: 36415; 71045; 80053; 82248; 85025; 87081; 93005; 96365; 96372; 96375; 99285